=== PATIENT | female | born 1965 | race Caucasian/White ===

== ENCOUNTER 2017-04-06 11:56 | Inpatient (IN) | payer OTHER ==
[2017-04-07] MEDS ORDERED: ONDANSETRON 4 MG/2 ML VIAL IVP PRN (11:28)
[2017-04-07] MEDS ORDERED: ACETAMINOPHEN 325 MG TAB PO PRN ×2 (11:28→13:17)
[2017-04-07] MEDS ORDERED: HEPARIN 10,000 UNIT/10 ML MDV IVP PRN ×2 (11:29→13:17)
[2017-04-07] MEDS ORDERED: HEPARIN 10,000 UNIT/10 ML MDV IVP ONE ×2 (11:29)
[2017-04-07] MEDS ORDERED: HEPARIN/DEXTROSE 500 ML IV SCH ×2 (11:30→12:00)
[2017-04-07] MEDS ORDERED: HYDROCODONE/APAP 5/325 TAB PO PRN (11:31)
[2017-04-07] MEDS ORDERED: HYDROmorphONE/DILAUDID 1 MG/ML SYR IVP PRN (11:31)
--- NOTE | 2017-04-07 14:26 | GHP ---
[f rep st] HISTORY AND PHYSICAL DATE OF ADMISSION: 04/07/2017 CHIEF COMPLAINT: Right external iliac occlusion. HISTORY OF PRESENT ILLNESS: This is a 51-year-old female who presents with an acute right external iliac occlusion. 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 She has had some longstanding claudication with significant exertion. She did a [employer] race 4 days ago and since then has had much worsening pain. She now has pain in her right thigh and calf with minimal exertion including ambulation. She has been getting some rest pain over the last [address] Rae who ordered a CT angio of her lower extremities. This did show an acute right external iliac occlusion. Chief she currently is able to move her foot, does beckwith ve some sensation. She does not have any resting pain when I am seeing her. PAST MEDICAL/SURGICAL HISTORY: 1. Migraine. 2. Depression. 3. Dysfunctional uterine bleeding. 4. Eczema. 5. IUD. 6. ACL repair with stem cells. 7. Cholecystectomy. 8. Cataract surgery. 9. section. 10. Knee scope. MEDICATIONS: Please see medication reconciliation. ALLERGIES: Sulfa. FAMILY HISTORY: Her aunt had breast cancer. SOCIAL HISTORY: She drinks a little bit of alcohol every day. REVIEW OF SYSTEMS: 10-point review of systems is conducted and is negative except per HPI. PHYSICAL EXAM: VITAL SIGNS: Blood pressure 112/68, heart rate 60, respiration rate 18, saturating 96% on room air. Temperature is 36.5. GENERAL: The patient a pleasant female, resting comfortably in no acute distress. HEENT: Shows her to be normocephalic, atraumatic. CARDIOVASCULAR: Regular rate and rhythm. No mu rmurs, rubs, or gallops. PULMONARY: Lungs clear to auscultation bilaterally. ABDOMEN: Soft, nontender, nondistended. SKIN: No rash. : Shows no Irizarry. NEUROLOGIC: Shows her to be alert and oriented x3. She is moving all extremi ties. PSYCHIATRIC: Shows normal mood and affect. LABORATORY DATA: I reviewed her last labs. These were from January 2017. These show normal comprehe nsive metabolic panel, LDL was 119. CBC is normal. DATA: 1. I reviewed her old chart including H and P from Dr. Peterson. 2. I reviewed her CT angiogram aorta with runoff. This shows complete occlusion of the right exter nal iliac artery. IMPRESSION AND PLAN: A 51-year-old female with right external iliac artery occlusion, occurred abou t [address] her on a heparin drip overnight. Dr. Peterson will perform an iliofemoral bypass tomorrow. She will be n.p.o. after midnight. She has IV pain medicines ordered. No further cardia c workup to do given her good exercise tolerance and lack of any risk factors. This is a high-risk diagnosis. /[id number]/MODL
[2017-04-07 14:50] LABS: % IMMATURE GRANULYOCYTES 0.1 % (0.0-1.1); ABSOLUTE IMMATURE GRANULOCYTES 0.01 10^3/uL (0.00-0.10); ADD DIFF? NO; ADD MORPH? NO; ADD SCAN? NO; ATYPICAL LYMPHOCYTE FLAG 20 (0-99); FRAGMENT RBC FLAG 0 (0-99); HEMATOCRIT 44.6 % (38.0-47.0); HEMOGLOBIN 15.3 g/dL (12.6-16.3); LEFT SHIFT FLG 0 (0-99); LIPEMIA HEMOLYSIS FLAG 90 (0-99); MEAN CELL HEMOGLOBIN 31.2 pg (27.9-34.1); MEAN CELL HEMOGLOBIN CONCENTR. 34.3 g/dL (32.4-36.7); PLATELET CLUMPS FLAG 30 (0-99); PLATELET COUNT 226 10^3/uL (150-400); RED CELL DISTRIBUTION WIDTH 12.1 % (11.5-15.2)
[2017-04-07 15:02] LABS: INR 1.03 (0.83-1.16); PROTIME(PATIENT) 13.4 SEC (12.0-15.0)
[2017-04-07 15:03] LABS: APTT 23.7 SEC (23.0-38.0)
[2017-04-07] MEDS ORDERED: SUMAtriptan 50 MG TAB PO PRN (15:05)
[2017-04-07] MEDS ORDERED: ACET/CAFFEINE/BUTA FIORICET 1 EACH TAB PO PRN (15:05)
[2017-04-07 15:58] LABS: ALANINE AMINOTRANSFERASE 20 IU/L (9-52); ALBUMIN 4.5 g/dL (3.5-5.0); ALKALINE PHOSPHATASE 47 IU/L (38-126); ANION GAP 15 mEq/L (8-16); ASPARTATE AMINOTRANSFERASE 26 IU/L (14-46); BILIRUBIN,TOTAL 0.6 mg/dL (0.1-1.4); CALCIUM 9.5 mg/dL (8.5-10.4); CARBON DIOXIDE 22 mEq/l (22-31); CHLORIDE 105 mEq/L (97-110); CREATININE 0.7 mg/dL (0.6-1.0); GLOMERULAR FILTRATION RATE > 60; GLUCOSE 102 mg/dL (70-100); POTASSIUM 4.5 mEq/L (3.5-5.2); SODIUM 142 mEq/L (134-144); TOTAL PROTEIN 7.4 g/dL (6.3-8.2)
--- NOTE | 2017-04-07 18:03 | PDGENHP ---
History and Physical History and Physical: 51-YEAR-OLD FEMALE WITH SEVERE LIMITING CLAUDICATION IN HER RIGHT LEG. SHE HAS HAD SOME SYMPTOMS FOR SEVERAL YEARS BUT HAS BEEN ABLE TO WORK THROUGH THEM. THIS WE CAN SHE HAD SHARP PAIN CREASE IN HER SYMPTOMS WAS UNABLE TO EVEN WALK TO THE CAR AT THIS POINT. CTA SHOWS RIGHT EXTERNAL ILIAC ARTERY OCCLUSION. SHE DOES EXERCISE A LOT INCLUDING BIKE RIDING IN RACES AND HEAVY SKIING. SHE IS ADMITTED AT THIS TIME FOR AN ILEAL FEMORAL BYPASS ON HER RIGHT SIDE. PAST HISTORY INCLUDES A LAP CHOLY HYSTERECTOMY NO KNOWN ALLERGIES MEDICATIONS OCCASIONAL MIGRAINE MEDICATION REVIEW OF SYSTEMS REVEALS NO MAJOR MEDICAL PROBLEMS ON A FULL COMPLETE 10 POINT REVIEW OF SYSTEMS SPECIFICALLY NO CARDIOPULMONARY SYMPTOMS GENERAL EXAM REVEALS HER TO BE ALERT COOPERATIVE IN NO ACUTE DISTRESS HEENT REVEALS NO ADENOPATHY NO THYROMEGALY, AND NO ORAL LESIONS, PUPILS ARE NORMAL CHEST IS CLEAR AND SYMMETRIC CARDIAC EXAM WAS REGULAR RHYTHM WITHOUT MURMURS ABDOMEN IS SOFT WITHOUT MASSES OR TENDERNESS SHE DOES HAVE BOWEL SOUNDS EXTREMITIES REVEAL FULL RANGE OF MOTION SHE HAS ABSENT RIGHT PEDAL PULSES AND A POOR RIGHT FEMORAL PULSE. SHE HAS FULL LEFT LEG PULSES. RIGHT LEG SHOWS SOME SIGNS OF ISCHEMIA WITH DEPENDENT RUBOR NEURO EXAM IS PHYSIOLOGIC SKIN IS INTACT WITHOUT LESIONS PSYCH EXAM REVEALS HER TO BE ORIENTED, COMPETENT AND COOPERATIVE IMPRESSION IS RIGHT EXTERNAL ILIAC OCCLUSION SECONDARY TO COMPRESSION AT THE INGUINAL LIGAMENT FROM CHRONIC EXERCISES TRAUMA. RISKS AND OPTIONS BEEN FULLY DISCUSSED WITH THE PATIENT AND ALSO WITH DR. GARCIA CHEY OF INTERVENTIONAL RADIOLOGY. WE DID NOT FEEL THAT THROMBOLYSIS WOULD BE A PERMANENT SOLUTION FOR HER PROBLEM AND THAT BYPASS WOULD BE A BETTER OPTION. SHE NOT REALLY HAVE A STENT IN THIS POSITION UNDER THE INGUINAL LIGAMENT AND HER FIBROSIS WILL MOST LIKELY CAUSE A WERE RE OCCLUSION AND THE SHE IS ON LONG-TERM ANTICOAGULANTS PLAN IS ADMIT FOR RIGHT ILIOFEMORAL BYPASS AND HEPARINIZATION. AGAIN THE RISKS AND OPTIONS BEEN FULLY DISCUSSED AND SHE WISHES TO PROCEED
[2017-04-08] MEDS ORDERED: BUPIVACAINE 0.5% 30 ML SDV ONE (06:47)
[2017-04-08] MEDS ORDERED: PROTAMINE SULFATE 50 MG/5 ML VIAL IVP ONE (06:47)
[2017-04-08] MEDS ORDERED: IOTHALAMATE MEG (CONRAY) 50 ML VIAL IV ONE (06:48)
[2017-04-08] MEDS ORDERED: PAPAVERINE HCL 60 MG/2 ML SDV ONE (06:48)
[2017-04-08] MEDS ORDERED: ceFAZolin 2 GM/DEXTROSE 100 ML IV ONE (07:00)
[2017-04-08] MEDS ORDERED: DEXAMETHASONE 4 MG/ML VIAL ONE (08:20)
[2017-04-08] MEDS ORDERED: ROCURONIUM 50 MG/5 ML VIAL ONE ×2 (08:20→09:48)
[2017-04-08] MEDS ORDERED: SUGAMMADEX SODIUM 200 MG/2 ML VIAL IVP ONE (08:20)
[2017-04-08] MEDS ORDERED: fentaNYL 100 MCG/2 ML INJ ONE ×2 (08:20→11:54)
[2017-04-08] MEDS ORDERED: LIDOCAINE 2% 100 MG/5 ML SYR ONE (08:20)
[2017-04-08] MEDS ORDERED: ONDANSETRON 4 MG/2 ML VIAL ONE ×2 (08:20→12:32)
[2017-04-08] MEDS ORDERED: HYDROmorphONE/DILAUDID 2 MG/ML INJ ONE ×2 (08:21→11:54)
[2017-04-08] MEDS ORDERED: PROPOFOL 200 MG/20 ML VIAL ONE (08:21)
[2017-04-08] MEDS ORDERED: MIDAZOLAM 2 MG/2 ML VIAL ONE (08:55)
[2017-04-08] MEDS ORDERED: PHENYLEPHRINE HCL 100 MCG/ML SYR ONE (09:24)
[2017-04-08] MEDS ORDERED: HEPARIN 10,000 UNIT/10 ML MDV ONE (09:54)
--- NOTE | 2017-04-08 12:35 | POSTOPPROG ---
Post Op Note Date of Operation: 04/08/17 Surgeon: Mitesh Peterson Brush Sander: Alverto Barrett Anesthesiologist: Dr Saleem Anesthesia: GET(General Endotracheal) Pre-op Diagnosis: right external iliac thrombosis/endofibrosis Post-op Diagnosis: same Indication: decreased flow to right leg Procedure: thrombectomy, right iliofemoral bypass surgery Findings: occluded external iliac artery Inf/Abcess present in the surg proc area at time of surgery?: No Depth: Organ Space EBL: 100-500
--- NOTE | 2017-04-08 12:40 | HOSPPROG ---
Hospitalist Progress Note Assessment/Plan: # external iliac occlusion s/p bipass - post-op care per Dr Peterson - move to SDU to check pulses frequently # hx migraines - home meds Care discussed with Dr Peterson. Hospital medicine will sign off. Please reconsult at any time. Subjective: s/p femoral bipass; no CP or SOB Objective: Vital Signs Temp Pulse Resp BP Pulse Ox 36.2 C 67 16 114/65 98 04/08/17 12:09 04/08/17 12:09 04/08/17 12:09 04/08/17 12:09 04/08/17 12:09 Laboratory Results 04/07/17 14:35 04/07/17 14:35 04/07/17 04/08/17 04/09/17 05:59 05:59 05:59 Intake Total 55.8 1900 Output Total 200 Balance 55.8 1700 PT 13.4 SEC (12.0-15.0) 04/07/17 14:35 INR 1.03 (0.83-1.16) 04/07/17 14:35 - Physical Exam Constitutional: no apparent distress Cardiovascular: regular rate and rhythym, no murmur, rub, or gallop Respiratory: no respiratory distress, no rales or rhonchi, clear to auscultation Gastrointestinal: normoactive bowel sounds, soft, non-tender abdomen, no palpable masses ICD10 Worksheet Patient Problems: Problems Problem Status Onset Arterial occlusion Acute
[2017-04-08] MEDS: HYDROmorphONE/DILAUDID 1 MG/ML SYR IVP PRN ×2 (15:31→17:55)
[2017-04-08] MEDS: ONDANSETRON 4 MG/2 ML VIAL IVP PRN ×2 (15:31→21:27)
[2017-04-08] MEDS: OMEGA-3 FATTY ACIDS 1,000 MG CAP PO SCH (15:31)
[2017-04-08] MEDS ORDERED: KETOROLAC 30 MG/1 ML SDV IVP ONE (18:15)
--- NOTE | 2017-04-08 18:49 | SOAPPROG ---
SOAP Progress Note Assessment/Plan: Assessment: POSTOP UPSET WITH A MIGRAINE HEADACHE / WOUND OKAY / FOOT WARM WITH STRONG DOPPLER PULSES / VITAL SIGNS STABLE Plan: AMBULATE IN THE A.M. 04/08/17 18:48 Objective: Vital Signs Temp Pulse Resp BP Pulse Ox 36.2 C 56 L 17 137/70 H 100 04/08/17 12:09 04/08/17 18:00 04/08/17 18:00 04/08/17 18:00 04/08/17 18:00 Laboratory Results 04/07/17 14:35 04/07/17 14:35 04/07/17 04/08/17 04/09/17 05:59 05:59 05:59 Intake Total 55.8 1950 Output Total 450 Balance 55.8 1500 PT 13.4 SEC (12.0-15.0) 04/07/17 14:35 INR 1.03 (0.83-1.16) 04/07/17 14:35 ICD10 Worksheet Patient Problems: Problems Problem Status Onset Arterial occlusion Acute
[2017-04-08] MEDS: HYDROCODONE/APAP 5/325 TAB PO PRN (20:32)
[2017-04-09] MEDS: KETOROLAC 15 MG/1 ML SDV IVP SCH ×5 (00:08→23:41)
[2017-04-09] MEDS: HYDROCODONE/APAP 5/325 TAB PO PRN ×3 (01:25→10:51)
[2017-04-09] MEDS: OMEGA-3 FATTY ACIDS 1,000 MG CAP PO SCH (07:44)
[2017-04-09] MEDS ORDERED: IOPAMIDOL (ISOVUE 370) 100 ML BTL IV ONE (11:28)
[2017-04-09] MEDS ORDERED: HEPARIN/DEXTROSE 500 ML IV SCH ×2 (14:41→23:41)
[2017-04-09] MEDS ORDERED: HEPARIN 10,000 UNIT/10 ML MDV IVP PRN (14:41)
[2017-04-09] MEDS ORDERED: HEPARIN 10,000 UNIT/10 ML MDV IVP ONE (14:45)
[2017-04-09] MEDS ORDERED: ceFAZolin 2 GM/DEXTROSE 100 ML IV ONE (15:00)
[2017-04-09] MEDS ORDERED: LR 1,000 ML IV SCH (15:00)
[2017-04-09 15:18] LABS: % IMMATURE GRANULYOCYTES 0.1 % (0.0-1.1); ABSOLUTE IMMATURE GRANULOCYTES 0.01 10^3/uL (0.00-0.10); ADD DIFF? NO; ADD MORPH? NO; ADD SCAN? NO; ATYPICAL LYMPHOCYTE FLAG 10 (0-99); FRAGMENT RBC FLAG 0 (0-99); HEMATOCRIT 40.1 % (38.0-47.0); HEMOGLOBIN 13.8 g/dL (12.6-16.3); LEFT SHIFT FLG 0 (0-99); LIPEMIA HEMOLYSIS FLAG 90 (0-99); MEAN CELL HEMOGLOBIN 31.2 pg (27.9-34.1); MEAN CELL HEMOGLOBIN CONCENTR. 34.4 g/dL (32.4-36.7); MEAN CELL VOLUME 90.7 fL (81.5-99.8); MEAN PLATELET VOLUME 10.4 fL (8.7-11.7); PLATELET CLUMPS FLAG 0 (0-99); PLATELET COUNT 173 10^3/uL (150-400); RED BLOOD CELL COUNT 4.42 10^6/uL (4.18-5.33); RED CELL DISTRIBUTION WIDTH 12.1 % (11.5-15.2)
[2017-04-09 15:28] LABS: APTT 23.8 SEC (23.0-38.0); INR 1.11 (0.83-1.16); PROTIME(PATIENT) 14.2 SEC (12.0-15.0)
[2017-04-09] MEDS ORDERED: THROMBIN (BOVINE) 20,000 UNIT SPRAY TP ONE (15:49)
[2017-04-09] MEDS ORDERED: THROMBIN (BOVINE) 5,000 UNIT VIAL TP ONE (15:50)
[2017-04-09] MEDS ORDERED: BUPIVACAINE 0.5% 30 ML SDV ONE (15:50)
--- NOTE | 2017-04-09 16:05 | SOAPPROG ---
JADA Progress Note Assessment/Plan: Assessment: POSTOP UPSET WITH A MIGRAINE HEADACHE / WOUND OKAY / FOOT WARM WITH STRONG DOPPLER PULSES / VITAL SIGNS STABLE Plan: AMBULATE IN THE A.M. 04/08/17 18:48 04/09/17 16:02 SEEN EARLIER THIS MORNING WITH COMPLAINTS OF NUMBNESS IN HER FOOT / PEDAL PULSES ARE MISSING / QUESTION ARISES OF DISTAL EMBOLUS / PLAN IS STAT CT AORTOGRAM WITH RUNOFF TO RULE OUT GRAFT OCCLUSION OR EMBOLI / SHE WILL PROBABLY NEED SURGICAL INTERVENTION / RISKS AND OPTIONS BEEN FULLY DISCUSSED SHE WISHES TO PROCEED / HER RIGHT FOOT IS VIABLE WITH INTACT SENSATION AND MOTOR FUNCTION BUT IS COOL WITH NO PALPABLE PEDAL PULSES. I CANNOT FEEL HER POPLITEAL PULSES EITHER 04/09/17 16:04 CTA CONFIRMS OCCLUSION OF HER BYPASS GRAFT BUT STILL OPEN RUNOFF / WILL NEED REEXPLORATION FOR POSSIBLE INTIMAL FLAP AND/OR REVISION OF HER GRAFT / RISKS AND OPTIONS BEEN FULLY DISCUSSED AND SHE WISHES TO PROCEED Objective: Vital Signs Temp Pulse Resp BP Pulse Ox 36.6 C 67 14 108/63 91 L 04/09/17 11:17 04/09/17 11:17 04/09/17 11:17 04/09/17 11:17 04/09/17 11:17 Laboratory Results 04/09/17 14:55 04/07/17 14:35 04/08/17 04/09/17 04/10/17 05:59 05:59 05:59 Intake Total 55.8 3079 Output Total 1850 Balance 55.8 1229 PT 14.2 SEC (12.0-15.0) 04/09/17 14:55 INR 1.11 (0.83-1.16) 04/09/17 14:55 ICD10 Worksheet Patient Problems: Problems Problem Status Onset Arterial occlusion Acute
[2017-04-09] MEDS ORDERED: MIDAZOLAM 2 MG/2 ML VIAL ONE (16:22)
[2017-04-09] MEDS ORDERED: PROPOFOL 200 MG/20 ML VIAL ONE (16:30)
[2017-04-09] MEDS ORDERED: fentaNYL 100 MCG/2 ML INJ ONE ×4 (16:30→20:15)
[2017-04-09] MEDS ORDERED: PROPOFOL/EMULSION 500 MG/50 ML BOTTLE IV ONE (16:31)
[2017-04-09] MEDS ORDERED: CITRATE DEXTROSE SOLN 500 ML BAG ONE (17:22)
[2017-04-09] MEDS ORDERED: ALTEPLASE 10 MG in NS 100 ML IVP ONE (17:30)
[2017-04-09] MEDS ORDERED: HYDROmorphONE/DILAUDID 2 MG/ML INJ ONE (17:31)
[2017-04-09] MEDS ORDERED: IOPAMIDOL (ISOVUE-300) 150 ML BTL ONE (17:44)
[2017-04-09] MEDS ORDERED: PROTAMINE SULFATE 50 MG/5 ML VIAL IVP ONE (18:56)
--- NOTE | 2017-04-09 19:37 | POSTOPPROG ---
Post Op Note Date of Operation: 04/09/17 Surgeon: Mitesh Peterson Mobile [employer] Specialist: radha Anesthesiologist: ara Anesthesia: GET(General Endotracheal) Pre-op Diagnosis: occluded right ileo-femoral bypass and distal emboli Post-op Diagnosis: same Indication: ischemia Procedure: ileo-femoral thrombectomy with patch angioplasty, operative angiography, tp Findings: sfa origin embolus and distal small vessel emboli Inf/Abcess present in the surg proc area at time of surgery?: No Depth: Organ Space EBL: 50-100 Complications: none Specimen(s): emboli
[2017-04-09] MEDS ORDERED: OXYCODONE/APAP 5/325 TAB PO PRN (19:41)
[2017-04-09] MEDS ORDERED: NALOXONE HCL 0.4 MG/ML INJ IVP PRN (19:42)
[2017-04-09] MEDS ORDERED: HYDROmorphONE/DILAUDID 6 MG/30 ML PCA IV PRN (19:42)
[2017-04-09] MEDS ORDERED: D5W 1/2 NS W/ 20 KCl/L 1,000 ML IV SCH (19:45)
[2017-04-09] MEDS ORDERED: HYDROmorphONE/DILAUDID 1 MG/ML SYR ONE (20:41)
[2017-04-09 20:45] LABS: HEMATOCRIT 36.6 % (38.0-47.0); HEMOGLOBIN 12.4 g/dL (12.6-16.3)
[2017-04-09] MEDS: ONDANSETRON 4 MG/2 ML VIAL IVP PRN (21:15)
[2017-04-10] MEDS: HYDROmorphONE/DILAUDID 1 MG/ML SYR IVP PRN ×4 (00:05→15:34)
[2017-04-10] MEDS: KETOROLAC 15 MG/1 ML SDV IVP SCH (05:21)
--- NOTE | 2017-04-10 06:53 | SOAPPROG ---
SOAP Progress Note Assessment/Plan: Assessment: Plan: Doing well, had some tingling in her thigh overnight which appears to have resolved. - Hb stable, HDS - MIRANDA serosang and slowing. - Given robust pulse exam last evening at 2000, 2300 and this AM at 0230 and 0630 I did not restart hep gtt, will start proph LMWH this AM - defer to Dr Peterson for poss activityt - started clear liquids 04/10/17 06:52 Objective: Vital Signs Temp Pulse Resp BP Pulse Ox 36.7 C 51 L 16 86/48 L 100 04/10/17 03:00 04/10/17 06:00 04/10/17 06:00 04/10/17 06:00 04/10/17 06:00 Laboratory Results 04/09/17 20:27 04/07/17 14:35 04/09/17 04/10/17 04/11/17 05:59 05:59 05:59 Intake Total 3079 4252 Output Total 1850 2720 Balance 1229 1532 PT 14.2 SEC (12.0-15.0) 04/09/17 14:55 INR 1.11 (0.83-1.16) 04/09/17 14:55 ICD10 Worksheet Patient Problems: Problems Problem Status Onset Arterial occlusion Acute
[2017-04-10] MEDS: OMEGA-3 FATTY ACIDS 1,000 MG CAP PO SCH (07:53)
[2017-04-10] MEDS: HYDROCODONE/APAP 5/325 TAB PO PRN ×3 (07:53→20:03)
[2017-04-10] MEDS: ENOXAPARIN 40 MG/0.4 ML SYR SC SCH (07:53)
[2017-04-10] MEDS: ONDANSETRON 4 MG/2 ML VIAL IVP PRN ×2 (12:16→15:34)
[2017-04-10] MEDS ORDERED: LACTULOSE 20 GM/30 ML UDCUP PO PRN (12:35)
[2017-04-10] MEDS ORDERED: MAGNESIUM HYDROXIDE 30 ML UDCUP PO PRN (12:35)
[2017-04-10] MEDS ORDERED: BISACODYL 10 MG SUPP PR PRN (12:35)
[2017-04-10] MEDS: KETOROLAC 15 MG/1 ML SDV IVP PRN ×2 (12:44→20:09)
--- NOTE | 2017-04-10 13:55 | SOAPPROG ---
JADA Progress Note Assessment/Plan: Assessment: POSTOP UPSET WITH A MIGRAINE HEADACHE / WOUND OKAY / FOOT WARM WITH STRONG DOPPLER PULSES / VITAL SIGNS STABLE Plan: AMBULATE IN THE A.M. 04/08/17 18:48 04/09/17 16:02 SEEN EARLIER THIS MORNING WITH COMPLAINTS OF NUMBNESS IN HER FOOT / PEDAL PULSES ARE MISSING / QUESTION ARISES OF DISTAL EMBOLUS / PLAN IS STAT CT AORTOGRAM WITH RUNOFF TO RULE OUT GRAFT OCCLUSION OR EMBOLI / SHE WILL PROBABLY NEED SURGICAL INTERVENTION / RISKS AND OPTIONS BEEN FULLY DISCUSSED SHE WISHES TO PROCEED / HER RIGHT FOOT IS VIABLE WITH INTACT SENSATION AND MOTOR FUNCTION BUT IS COOL WITH NO PALPABLE PEDAL PULSES. I CANNOT FEEL HER POPLITEAL PULSES EITHER 04/09/17 16:04 CTA CONFIRMS OCCLUSION OF HER BYPASS GRAFT BUT STILL OPEN RUNOFF / WILL NEED REEXPLORATION FOR POSSIBLE INTIMAL FLAP AND/OR REVISION OF HER GRAFT / RISKS AND OPTIONS BEEN FULLY DISCUSSED AND SHE WISHES TO PROCEED 04/10/17 13:53 DOING OKAY THIS MORNING BUT COMPLAINING OF HEADACHE AND BACK PAIN / ABDOMEN SOFT / WOUNDS OKAY/ PULSES BOUNDING NEEDS TO BE MOBILIZED / SOME NAUSEA SO POOR P.O. INTAKE / EXCEPT FOR EMOTIONAL STATUS DOING WELL Objective: Vital Signs Temp Pulse Resp BP Pulse Ox 36.6 C 76 18 104/62 100 04/10/17 12:00 04/10/17 12:00 04/10/17 12:00 04/10/17 12:00 04/10/17 12:00 Laboratory Results 04/09/17 20:27 04/07/17 14:35 04/09/17 04/10/17 04/11/17 05:59 05:59 05:59 Intake Total 3079 4252 Output Total 9180 2990 Balance 1229 1532 PT 14.2 SEC (12.0-15.0) 04/09/17 14:55 INR 1.11 (0.83-1.16) 04/09/17 14:55 ICD10 Worksheet Patient Problems: Problems Problem Status Onset Arterial occlusion Acute
[2017-04-10] MEDS: POLYETHYLENE GLYCOL 3350 17 GM PKT PO PRN (14:34)
--- NOTE | 2017-04-10 16:55 | SOAPPROG ---
JADA Progress Note Assessment/Plan: Assessment: POSTOP UPSET WITH A MIGRAINE HEADACHE / WOUND OKAY / FOOT WARM WITH STRONG DOPPLER PULSES / VITAL SIGNS STABLE Plan: AMBULATE IN THE A.M. 04/08/17 18:48 04/09/17 16:02 SEEN EARLIER THIS MORNING WITH COMPLAINTS OF NUMBNESS IN HER FOOT / PEDAL PULSES ARE MISSING / QUESTION ARISES OF DISTAL EMBOLUS / PLAN IS STAT CT AORTOGRAM WITH RUNOFF TO RULE OUT GRAFT OCCLUSION OR EMBOLI / SHE WILL PROBABLY NEED SURGICAL INTERVENTION / RISKS AND OPTIONS BEEN FULLY DISCUSSED SHE WISHES TO PROCEED / HER RIGHT FOOT IS VIABLE WITH INTACT SENSATION AND MOTOR FUNCTION BUT IS COOL WITH NO PALPABLE PEDAL PULSES. I CANNOT FEEL HER POPLITEAL PULSES EITHER 04/09/17 16:04 CTA CONFIRMS OCCLUSION OF HER BYPASS GRAFT BUT STILL OPEN RUNOFF / WILL NEED REEXPLORATION FOR POSSIBLE INTIMAL FLAP AND/OR REVISION OF HER GRAFT / RISKS AND OPTIONS BEEN FULLY DISCUSSED AND SHE WISHES TO PROCEED 04/10/17 13:53 DOING OKAY THIS MORNING BUT COMPLAINING OF HEADACHE AND BACK PAIN / ABDOMEN SOFT / WOUNDS OKAY/ PULSES BOUNDING NEEDS TO BE MOBILIZED / SOME NAUSEA SO POOR P.O. INTAKE / EXCEPT FOR EMOTIONAL STATUS DOING WELL 04/10/17 16:54 NOT ABLE TO MOBILIZE WELL SECONDARY TO PAIN / AFEBRILE / WOUND OKAY / PULSES GRADE/ DRAIN OUT AND VALERIO CATHETER OUT Objective: Vital Signs Temp Pulse Resp BP Pulse Ox 36.6 C 68 16 89/53 L 98 04/10/17 12:00 04/10/17 16:00 04/10/17 16:00 04/10/17 16:00 04/10/17 16:00 Laboratory Results 04/09/17 20:27 04/07/17 14:35 04/09/17 04/10/17 04/11/17 05:59 05:59 05:59 Intake Total 3079 4252 Output Total 1850 3960 580 Balance 1229 1532 -580 PT 14.2 SEC (12.0-15.0) 04/09/17 14:55 INR 1.11 (0.83-1.16) 04/09/17 14:55 ICD10 Worksheet Patient Problems: Problems Problem Status Onset Arterial occlusion Acute
[2017-04-10] MEDS: SENNOSIDES/DOCUSATE SODIUM TAB PO SCH (20:04)
[2017-04-11] MEDS: HYDROCODONE/APAP 5/325 TAB PO PRN ×6 (00:05→20:56)
[2017-04-11 07:05] LABS: HEMATOCRIT 31.8 % (38.0-47.0); HEMOGLOBIN 10.6 g/dL (12.6-16.3)
[2017-04-11] MEDS: ASPIRIN EC 81 MG TAB PO SCH (07:55)
[2017-04-11] MEDS: POLYETHYLENE GLYCOL 3350 17 GM PKT PO PRN (07:55)
[2017-04-11] MEDS: ENOXAPARIN 40 MG/0.4 ML SYR SC SCH (07:55)
[2017-04-11] MEDS: SENNOSIDES/DOCUSATE SODIUM TAB PO SCH ×2 (07:55→21:03)
[2017-04-11] MEDS: KETOROLAC 15 MG/1 ML SDV IVP PRN ×2 (07:56→16:29)
[2017-04-11] MEDS: OMEGA-3 FATTY ACIDS 1,000 MG CAP PO SCH (07:56)
[2017-04-11 08:25] LABS: ANION GAP 7 mEq/L (8-16); CALCIUM 8.5 mg/dL (8.5-10.4); CARBON DIOXIDE 27 mEq/l (22-31); CHLORIDE 104 mEq/L (97-110); CREATININE 0.6 mg/dL (0.6-1.0); GLOMERULAR FILTRATION RATE > 60; GLUCOSE 85 mg/dL (70-100); POTASSIUM 3.6 mEq/L (3.5-5.2); SODIUM 138 mEq/L (134-144)
--- NOTE | 2017-04-11 11:33 | SOAPPROG ---
JADA Progress Note Assessment/Plan: Assessment: POSTOP UPSET WITH A MIGRAINE HEADACHE / WOUND OKAY / FOOT WARM WITH STRONG DOPPLER PULSES / VITAL SIGNS STABLE Plan: AMBULATE IN THE A.M. 04/08/17 18:48 04/09/17 16:02 SEEN EARLIER THIS MORNING WITH COMPLAINTS OF NUMBNESS IN HER FOOT / PEDAL PULSES ARE MISSING / QUESTION ARISES OF DISTAL EMBOLUS / PLAN IS STAT CT AORTOGRAM WITH RUNOFF TO RULE OUT GRAFT OCCLUSION OR EMBOLI / SHE WILL PROBABLY NEED SURGICAL INTERVENTION / RISKS AND OPTIONS BEEN FULLY DISCUSSED SHE WISHES TO PROCEED / HER RIGHT FOOT IS VIABLE WITH INTACT SENSATION AND MOTOR FUNCTION BUT IS COOL WITH NO PALPABLE PEDAL PULSES. I CANNOT FEEL HER POPLITEAL PULSES EITHER 04/09/17 16:04 CTA CONFIRMS OCCLUSION OF HER BYPASS GRAFT BUT STILL OPEN RUNOFF / WILL NEED REEXPLORATION FOR POSSIBLE INTIMAL FLAP AND/OR REVISION OF HER GRAFT / RISKS AND OPTIONS BEEN FULLY DISCUSSED AND SHE WISHES TO PROCEED 04/10/17 13:53 DOING OKAY THIS MORNING BUT COMPLAINING OF HEADACHE AND BACK PAIN / ABDOMEN SOFT / WOUNDS OKAY/ PULSES BOUNDING NEEDS TO BE MOBILIZED / SOME NAUSEA SO POOR P.O. INTAKE / EXCEPT FOR EMOTIONAL STATUS DOING WELL 04/10/17 16:54 NOT ABLE TO MOBILIZE WELL SECONDARY TO PAIN / AFEBRILE / WOUND OKAY / PULSES GRADE/ DRAIN OUT AND VALERIO CATHETER OUT 04/11/17 11:32 MUCH IMPROVED/ AFEBRILE/ WOUNDS OK/ PULSES GOOD/ TO MED SURG Objective: Vital Signs Temp Pulse Resp BP Pulse Ox 36.8 C 76 14 99/56 L 98 04/11/17 10:00 04/11/17 10:00 04/11/17 10:00 04/11/17 10:00 04/11/17 10:00 Laboratory Results 04/11/17 07:00 04/11/17 07:45 04/10/17 04/11/17 04/12/17 05:59 05:59 05:59 Intake Total 4252 600 Output Total 5800 730 Balance 1532 -130 PT 14.2 SEC (12.0-15.0) 04/09/17 14:55 INR 1.11 (0.83-1.16) 04/09/17 14:55 ICD10 Worksheet Patient Problems: Problems Problem Status Onset Arterial occlusion Acute
[2017-04-12] MEDS: HYDROCODONE/APAP 5/325 TAB PO PRN ×5 (00:35→20:28)
[2017-04-12] MEDS: KETOROLAC 15 MG/1 ML SDV IVP PRN (00:35)
[2017-04-12] MEDS ORDERED: CYCLOBENZAPRINE 10 MG TAB PO PRN (01:00)
[2017-04-12] MEDS: SENNOSIDES/DOCUSATE SODIUM TAB PO SCH ×3 (04:18→20:28)
[2017-04-12] MEDS: ENOXAPARIN 40 MG/0.4 ML SYR SC SCH (08:20)
[2017-04-12] MEDS: OMEGA-3 FATTY ACIDS 1,000 MG CAP PO SCH (08:20)
[2017-04-12] MEDS: ASPIRIN EC 81 MG TAB PO SCH (08:20)
[2017-04-12] MEDS: IBUPROFEN 600 MG TAB PO SCH ×2 (13:03→17:55)
--- NOTE | 2017-04-12 18:09 | SOAPPROG ---
SOAP Progress Note Assessment/Plan: Assessment: POSTOP UPSET WITH A MIGRAINE HEADACHE / WOUND OKAY / FOOT WARM WITH STRONG DOPPLER PULSES / VITAL SIGNS STABLE Plan: AMBULATE IN THE A.M. 04/08/17 18:48 04/09/17 16:02 SEEN EARLIER THIS MORNING WITH COMPLAINTS OF NUMBNESS IN HER FOOT / PEDAL PULSES ARE MISSING / QUESTION ARISES OF DISTAL EMBOLUS / PLAN IS STAT CT AORTOGRAM WITH RUNOFF TO RULE OUT GRAFT OCCLUSION OR EMBOLI / SHE WILL PROBABLY NEED SURGICAL INTERVENTION / RISKS AND OPTIONS BEEN FULLY DISCUSSED SHE WISHES TO PROCEED / HER RIGHT FOOT IS VIABLE WITH INTACT SENSATION AND MOTOR FUNCTION BUT IS COOL WITH NO PALPABLE PEDAL PULSES. I CANNOT FEEL HER POPLITEAL PULSES EITHER 04/09/17 16:04 CTA CONFIRMS OCCLUSION OF HER BYPASS GRAFT BUT STILL OPEN RUNOFF / WILL NEED REEXPLORATION FOR POSSIBLE INTIMAL FLAP AND/OR REVISION OF HER GRAFT / RISKS AND OPTIONS BEEN FULLY DISCUSSED AND SHE WISHES TO PROCEED 04/10/17 13:53 DOING OKAY THIS MORNING BUT COMPLAINING OF HEADACHE AND BACK PAIN / ABDOMEN SOFT / WOUNDS OKAY/ PULSES BOUNDING NEEDS TO BE MOBILIZED / SOME NAUSEA SO POOR P.O. INTAKE / EXCEPT FOR EMOTIONAL STATUS DOING WELL 04/10/17 16:54 NOT ABLE TO MOBILIZE WELL SECONDARY TO PAIN / AFEBRILE / WOUND OKAY / PULSES GRADE/ DRAIN OUT AND VALERIO CATHETER OUT 04/11/17 11:32 MUCH IMPROVED/ AFEBRILE/ WOUNDS OK/ PULSES GOOD/ TO MED SURG 04/12/17 18:07 CONTINUES TO IMPROVE / AMBULATING OKAY / FULL PULSES / HOPEFULLY HOME IN THE A.M. Objective: Vital Signs Temp Pulse Resp BP Pulse Ox 36.8 C 72 14 119/89 H 92 04/12/17 16:00 04/12/17 16:00 04/12/17 16:00 04/12/17 16:00 04/12/17 16:00 Laboratory Results 04/11/17 07:00 04/11/17 07:45 04/11/17 04/12/17 04/13/17 05:59 05:59 05:59 Intake Total 600 2450 Output Total 730 Balance -130 2450 PT 14.2 SEC (12.0-15.0) 04/09/17 14:55 INR 1.11 (0.83-1.16) 06/09/17 14:55 ICD10 Worksheet Patient Problems: Problems Problem Status Onset Arterial occlusion Acute
[2017-04-12 20:31] VITALS: RESP 16
[2017-04-13] MEDS: IBUPROFEN 600 MG TAB PO SCH ×3 (00:54→14:03)
[2017-04-13] MEDS: HYDROCODONE/APAP 5/325 TAB PO PRN ×2 (00:56→08:42)
[2017-04-13 04:38] LABS: % IMMATURE GRANULYOCYTES 0.3 % (0.0-1.1); ABSOLUTE IMMATURE GRANULOCYTES 0.02 10^3/uL (0.00-0.10); ADD DIFF? NO; ADD MORPH? NO; ADD SCAN? NO; ATYPICAL LYMPHOCYTE FLAG 40 (0-99); FRAGMENT RBC FLAG 0 (0-99); HEMATOCRIT 32.2 % (38.0-47.0); HEMOGLOBIN 10.9 g/dL (12.6-16.3); LEFT SHIFT FLG 0 (0-99); LIPEMIA HEMOLYSIS FLAG 90 (0-99); MEAN CELL HEMOGLOBIN 30.7 pg (27.9-34.1); MEAN CELL HEMOGLOBIN CONCENTR. 33.9 g/dL (32.4-36.7); MEAN CELL VOLUME 90.7 fL (81.5-99.8); MEAN PLATELET VOLUME 9.9 fL (8.7-11.7); PLATELET CLUMPS FLAG 0 (0-99); PLATELET COUNT 182 10^3/uL (150-400); RED BLOOD CELL COUNT 3.55 10^6/uL (4.18-5.33)
[2017-04-13 07:17] VITALS: BP 119/75; PULSE 70; TEMP 97.8; O2SAT 94
[2017-04-13] MEDS: SENNOSIDES/DOCUSATE SODIUM TAB PO SCH (08:41)
[2017-04-13] MEDS: OMEGA-3 FATTY ACIDS 1,000 MG CAP PO SCH (08:42)
[2017-04-13] MEDS: ASPIRIN EC 81 MG TAB PO SCH (08:42)
[2017-04-13] MEDS: ENOXAPARIN 40 MG/0.4 ML SYR SC SCH (08:43)
--- NOTE | 2017-04-13 12:12 | SOAPPROG ---
SOMARV Progress Note Assessment/Plan: Assessment/Plan: 51 Y F s/p ileo-femoral bypass, s/p return to OR for ileo- femoral thrombectomy with patch angioplasty, operative angiography, tp. POD# 5, [address] Peterson. Doing well overall. Possibly home later today after post op baseline arterial studies. S: c/o some cramps in thigh when walking. c/o some numbness and nerve pain in medial distal thigh. Eating. +BM. Walking independently. O: gen: alert, nad heent: ncat, mmm chest: no wob abd: soft,in cdi ext: palpable pedal pulses B, inc cdi, feet warm, healthy pink perfused color 04/13/17 12:09 Objective: Vital Signs Temp Pulse Resp BP Pulse Ox 36.6 C 70 16 119/75 94 04/13/17 07:15 04/13/17 07:15 04/13/17 07:15 04/13/17 07:15 04/13/17 07:15 Laboratory Results 04/13/17 03:50 04/11/17 07:45 04/12/17 04/13/17 04/14/17 05:59 05:59 05:59 Intake Total 2450 2700 Balance 2450 2700 PT 14.2 SEC (12.0-15.0) 04/09/17 14:55 INR 1.11 (0.83-1.16) 04/09/17 14:55 ICD10 Worksheet Patient Problems: Problems Problem Status Onset Arterial occlusion Acute
== END 2017-04-13 14:20 | disposition home or self-care (01) | DRG 271 ==
LOC: UNDOADMIN 23:42 → F2N 23:42 → F3E 04-07 13:06 → F2N 04-08 12:58 → F2W 04-09 09:05 → F2N 04-09 20:00 → F2W 04-11 17:55
PROVIDERS: ADMIT Surgery; ATTEND Surgery
PROC: 04100JD Bypass Abdominal Aorta to Right External Iliac Artery with Synthetic Substitute, Open Approach (ICD-10-PCS; principal; 2017-04-08 09:00)
PROC: 3E05317 Introduction of Other Thrombolytic into Peripheral Artery, Percutaneous Approach (ICD-10-PCS; 2017-04-09 15:00)
PROC: 04CH0ZZ Extirpation of Matter from Right External Iliac Artery, Open Approach (ICD-10-PCS; 2017-04-09 15:00)
DX: I74.5 Embolism and thrombosis of iliac artery (principal); T81.718A Complication of other artery following a procedure, not elsewhere classified, initial encounter; G43.909 Migraine, unspecified, not intractable, without status migrainosus; F32.9 Major depressive disorder, single episode, unspecified
CPT/HCPCS: 85520-90; 97116-GP; 97161-GP; C1757; C1768; J0690; J1100; J1170; J1644; J1650; J1885; J2001; J2250; J2370; J2405; J2440; J2704; J2720; J2997; J3010; J7060; Q9961; Q9967

== ENCOUNTER → 2017-04-06 | Outpatient (CLI) | payer OTHER ==
[~2017-04-06] MED LIST: IOPAMIDOL (ISOVUE 370) 100 ML BTL IV ONE
== END ==
LOC: FIMAGING 15:14
PROVIDERS: ATTEND Radiology Diagnostic Radiology
DX: I74.5 Embolism and thrombosis of iliac artery (principal)
CPT/HCPCS: Q9967

== ENCOUNTER 2017-06-24 12:29 | Inpatient (IN) | payer OTHER ==
[2017-06-24] MEDS ORDERED: IOPAMIDOL (ISOVUE 370) 100 ML BTL IV ONE (13:39)
--- NOTE | 2017-06-24 15:38 | PDGENHP ---
History & Physical Chief Complaint: RIGHT LEG PAIN History of Present Illness: 51-YEAR-OLD FEMALE STATUS POST ILIOFEMORAL BYPASS WITH SUDDEN ONSET OF SOME RIGHT LEG PAIN FOLLOWING A BICYCLE RIDE TODAY. SHE HAD AN OCCLUDED RIGHT ILIAC ARTERY IN APRIL Pertinent Past, Social, Family History: PAST MEDICAL HISTORY: RIGHT ILIAC ARTERY OCCLUSION WITH THE BYPASS AND THROMBECTOMY. REVIEW OF SYSTEMS IS NEGATIVE ON A FULL 10 POINT REVIEW OF SYSTEMS. FAMILY HISTORY IS NONCONTRIBUTORY. MEDICINES ARE ASPIRIN. ALLERGIES ARE SULFA Relevant Physical Exam: GENERAL: HEALTHY 51-YEAR-OLD FEMALE NO ACUTE DISTRESS, AFEBRILE. HEENT NONICTERIC WITHOUT ADENOPATHY. CHEST CLEAR. COR REGULAR RHYTHM. ABDOMEN SOFT WITH WELL-HEALED RIGHT LOWER QUADRANT INCISION. EXTREMITIES: ABSENT PEDAL PULSES ON THE RIGHT INCLUDING A RIGHT FEMORAL PULSE WITH FULL PEDAL PULSES ON THE LEFT/CAPILLARY FILLING ON THE RIGHT IS MORE SLUGGISH. NEURO: PHYSIOLOGIC AND SYMMETRIC. SKIN: NO BREAKDOWN OR RASHES OR OTHER LESIONS. PSYCH: ALERT ORIENTED AND COOPERATIVE Cardiorespiratory Assessment: IMPRESSION: PROBABLE RIGHT ILIOFEMORAL GRAFT THROMBOSIS. PLAN: ADMIT FOR CT ANGIOGRAM AND PROBABLE AORTOGRAM WITH THROMBOLYSIS. RISKS AND OPTIONS FULLY DISCUSSED
[2017-06-24] MEDS ORDERED: IOPAMIDOL (ISOVUE-300) 100 ML BTL ONE (15:43)
[2017-06-24] MEDS ORDERED: MIDAZOLAM 2 MG/2 ML VIAL ONE (16:20)
[2017-06-24] MEDS ORDERED: fentaNYL 100 MCG/2 ML INJ ONE (16:20)
[2017-06-24 16:25] LABS: % IMMATURE GRANULYOCYTES 0.2 % (0.0-1.1); ABSOLUTE IMMATURE GRANULOCYTES 0.02 10^3/uL (0.00-0.10); ADD DIFF? NO; ADD MORPH? NO; ADD SCAN? NO; ATYPICAL LYMPHOCYTE FLAG 10 (0-99); FRAGMENT RBC FLAG 0 (0-99); HEMATOCRIT 42.7 % (38.0-47.0); HEMOGLOBIN 14.7 g/dL (12.6-16.3); LEFT SHIFT FLG 0 (0-99); LIPEMIA HEMOLYSIS FLAG 90 (0-99); MEAN CELL HEMOGLOBIN 30.6 pg (27.9-34.1); MEAN CELL HEMOGLOBIN CONCENTR. 34.4 g/dL (32.4-36.7); MEAN PLATELET VOLUME 9.3 fL (8.7-11.7); PLATELET CLUMPS FLAG 0 (0-99); PLATELET COUNT 260 10^3/uL (150-400); RED CELL DISTRIBUTION WIDTH 13.4 % (11.5-15.2)
[2017-06-24 16:37] LABS: INR 1.04 (0.83-1.16); PROTIME(PATIENT) 13.5 SEC (12.0-15.0)
[2017-06-24 16:38] LABS: APTT 24.6 SEC (23.0-38.0)
[2017-06-24] MEDS ORDERED: HEPARIN/DEXTROSE 25,000 UNIT/500 ML BAG ONE (16:42)
[2017-06-24 16:45] LABS: ALANINE AMINOTRANSFERASE 37 IU/L (9-52); ALBUMIN 4.7 g/dL (3.5-5.0); ALKALINE PHOSPHATASE 54 IU/L (38-126); ANION GAP 14 mEq/L (8-16); ASPARTATE AMINOTRANSFERASE 24 IU/L (14-46); BILIRUBIN,TOTAL 0.5 mg/dL (0.1-1.4); CALCIUM 9.7 mg/dL (8.5-10.4); CARBON DIOXIDE 25 mEq/l (22-31); CHLORIDE 100 mEq/L (97-110); CREATININE 0.7 mg/dL (0.6-1.0); GLOMERULAR FILTRATION RATE > 60; GLUCOSE 78 mg/dL (70-100); POTASSIUM 3.9 mEq/L (3.5-5.2); SODIUM 139 mEq/L (134-144); TOTAL PROTEIN 7.9 g/dL (6.3-8.2)
[2017-06-24] MEDS ORDERED: ALTEPLASE 5 MG in NS 100 ML IV ONE (17:45)
[2017-06-24] MEDS ORDERED: PROMETHAZINE HCL 25 MG/ML INJ IVP PRN (18:37)
[2017-06-24] MEDS ORDERED: ALTEPLASE 5 MG in NS 100 ML IV SCH (18:45)
[2017-06-24] MEDS: D5W 1/2 NS W/ 20 KCl/L 1,000 ML IV SCH (18:49)
--- NOTE | 2017-06-24 18:55 | POSTOPPROG ---
Post Op Note Date of Operation: 06/24/17 Surgeon: Mino Knight Anesthesia: IV Sedation Pre-op Diagnosis: Rt external iliac-common femoral graft thrombosis Post-op Diagnosis: Same Indication: Rt external iliac-common femoral graft thrombosis Procedure: Pelvic and RLE angiography, CDI of Rt external iliac-common femoral graft Findings: See report Inf/Abcess present in the surg proc area at time of surgery?: No Complications: No immediate
[2017-06-25 01:11] LABS: APTT 28.8 SEC (23.0-38.0)
[2017-06-25] MEDS: HYDROmorphONE/DILAUDID 1 MG/ML SYR IVP PRN ×3 (04:41→19:22)
[2017-06-25] MEDS: D5W 1/2 NS W/ 20 KCl/L 1,000 ML IV SCH (04:41)
[2017-06-25 06:18] LABS: % IMMATURE GRANULYOCYTES 0.4 % (0.0-1.1); ABSOLUTE IMMATURE GRANULOCYTES 0.02 10^3/uL (0.00-0.10); ADD DIFF? NO; ADD MORPH? NO; ADD SCAN? NO; ATYPICAL LYMPHOCYTE FLAG 10 (0-99); FRAGMENT RBC FLAG 0 (0-99); HEMOGLOBIN 11.6 g/dL (12.6-16.3); LEFT SHIFT FLG 0 (0-99); LIPEMIA HEMOLYSIS FLAG 80 (0-99); MEAN CELL HEMOGLOBIN 30.2 pg (27.9-34.1); MEAN CELL HEMOGLOBIN CONCENTR. 33.1 g/dL (32.4-36.7); MEAN CELL VOLUME 91.1 fL (81.5-99.8); MEAN PLATELET VOLUME 9.4 fL (8.7-11.7); PLATELET CLUMPS FLAG 0 (0-99); PLATELET COUNT 190 10^3/uL (150-400); RED BLOOD CELL COUNT 3.84 10^6/uL (4.18-5.33); RED CELL DISTRIBUTION WIDTH 13.5 % (11.5-15.2)
[2017-06-25 06:29] LABS: APTT 29.2 SEC (23.0-38.0)
--- NOTE | 2017-06-25 09:11 | SOAPPROG ---
JADA Progress Note Assessment/Plan: Assessment: 51 yo F w h/o right external iliac artery occlusion s/p iliofemoral bypass April 2016 and revision several days later who presented 1 day ago with acute re- occlusion of her graft. She is now s/p initiation of EKOS CDT POD#1. Pulses improved. On bedside US this am, the lysis catheter appears within the distal graft and the distal graft appears patent. Plan: 1. Continue TPA @ 0.5 mg/hr and heparin at 300 units/hr. 2. Lysis check this afternoon. 06/25/17 08:43 Subjective: Tired this morning but says RLE pain is improved. Endorses low back pain which she believes is due to lying flat in bed, which she typically doesn't do. Objective: Vital Signs Temp Pulse Resp BP Pulse Ox 36.4 C 57 L 15 89/58 L 100 06/25/17 04:00 06/25/17 06:00 06/25/17 06:00 06/25/17 06:00 06/25/17 06:00 Laboratory Results 06/25/17 06:00 06/24/17 16:10 06/24/17 06/25/17 06/26/17 05:59 05:59 05:59 Intake Total 2158 Output Total 800 Balance 1358 PT 13.5 SEC (12.0-15.0) 06/24/17 16:10 INR 1.04 (0.83-1.16) 06/24/17 16:10 Gen: Awake, alert, NAD Heart: Sinus ashleigh Resp: Normal effort, equal excursions Abd: NTND Left groin: Dressing intact, small blood around sheath insertion site, no palpable hematoma Pulses: 2+ left, 1+ right MSK: No CCE On bedside US of right groin, lysis catheter seen within distal graft, which appears patent. - Time Spent With Patient Time Spent With Patient: 15 ICD10 Worksheet Patient Problems: Problems Problem Status Onset Arterial occlusion Acute
[2017-06-25] MEDS: ONDANSETRON 4 MG/2 ML VIAL IVP PRN ×3 (11:30→19:19)
[2017-06-25] MEDS ORDERED: fentaNYL 100 MCG/2 ML INJ ONE (12:28)
[2017-06-25] MEDS: fentaNYL 100 MCG/2 ML INJ IV PRN ×2 (12:30→16:08)
[2017-06-25] MEDS ORDERED: fentaNYL 100 MCG/2 ML INJ IVP PRN (12:31)
[2017-06-25 14:14] LABS: APTT 23.7 SEC (23.0-38.0)
--- NOTE | 2017-06-25 14:30 | SOAPPROG ---
SOAP Progress Note Assessment/Plan: Assessment: 51 female with rt ilio-femoral bypass occlusion sp thrombolysis palpable strong dp pulse/ foot warm and less painful with good cap filling Plan:await fu angiogram 06/25/17 14:28 Objective: Vital Signs Temp Pulse Resp BP Pulse Ox 36.9 C 62 31 H 111/67 96 06/25/17 08:00 06/25/17 12:00 06/25/17 12:00 06/25/17 12:00 06/25/17 12:00 Laboratory Results 06/25/17 06:00 06/24/17 16:10 06/24/17 06/25/17 06/26/17 05:59 05:59 05:59 Intake Total 2158 Output Total 800 Balance 1358 PT 13.5 SEC (12.0-15.0) 06/24/17 16:10 INR 1.04 (0.83-1.16) 06/24/17 16:10 ICD10 Worksheet Patient Problems: Problems Problem Status Onset Arterial occlusion Acute
[2017-06-25] MEDS ORDERED: MIDAZOLAM 2 MG/2 ML VIAL ONE (16:41)
[2017-06-25] MEDS ORDERED: HEPARIN 10,000 UNIT/10 ML MDV ONE (17:03)
[2017-06-25] MEDS ORDERED: IOPAMIDOL (ISOVUE-300) 100 ML BTL ONE (18:28)
[2017-06-25] MEDS ORDERED: HEPARIN 10,000 UNIT/10 ML MDV IVP ONE (19:37)
[2017-06-25] MEDS: HEPARIN/DEXTROSE 500 ML IV SCH (20:54)
[2017-06-25 21:05] LABS: % IMMATURE GRANULYOCYTES 0.2 % (0.0-1.1); ABSOLUTE IMMATURE GRANULOCYTES 0.02 10^3/uL (0.00-0.10); ADD DIFF? NO; ADD MORPH? NO; ADD SCAN? NO; ATYPICAL LYMPHOCYTE FLAG 0 (0-99); FRAGMENT RBC FLAG 0 (0-99); HEMATOCRIT 37.2 % (38.0-47.0); HEMOGLOBIN 12.6 g/dL (12.6-16.3); LEFT SHIFT FLG 0 (0-99); LIPEMIA HEMOLYSIS FLAG 90 (0-99); MEAN CELL HEMOGLOBIN 30.4 pg (27.9-34.1); MEAN CELL HEMOGLOBIN CONCENTR. 33.9 g/dL (32.4-36.7); MEAN CELL VOLUME 89.9 fL (81.5-99.8); MEAN PLATELET VOLUME 9.6 fL (8.7-11.7); PLATELET CLUMPS FLAG 0 (0-99); PLATELET COUNT 195 10^3/uL (150-400); RED BLOOD CELL COUNT 4.14 10^6/uL (4.18-5.33); RED CELL DISTRIBUTION WIDTH 13.2 % (11.5-15.2)
[2017-06-25 21:13] LABS: INR 1.14 (0.83-1.16); PROTIME(PATIENT) 14.5 SEC (12.0-15.0)
[2017-06-25 21:14] LABS: APTT 23.8 SEC (23.0-38.0)
[2017-06-25] MEDS: LORazepam 1 MG TAB PO PRN (22:10)
[2017-06-26] MEDS: OXYCODONE/APAP 5/325 TAB PO PRN ×3 (07:43→15:06)
--- NOTE | 2017-06-26 11:08 | SOAPPROG ---
JADA Progress Note Assessment/Plan: Assessment/Plan: - 51-year-old female status post right lower extremity revascularization, status post angiography for pulseless extremity No events overnight, repeat angiography yesterday showed no acute findings or anything concerning which would require intervention. Overnight she remained on a heparin drip which is therapeutic this morning. On examination, her foot is warm, she denies pain, she has a palpable DP pulse and a good PT signal which is consistent with her baseline. Plan for the day will be to transfer to PCU, start Coumadin and Plavix. Will check INR in the morning, anticipate she will be here over the weekend bridging her heparin with anticipated discharge early next week. Want the patient to get out of bed and do some walking today. 06/26/17 11:06 Subjective: Doing well this morning, denies pain in the right lower extremity. Tolerating regular diet. Objective: Vital Signs Temp Pulse Resp BP Pulse Ox 36.6 C 77 14 108/67 97 06/26/17 07:44 06/26/17 10:00 06/26/17 10:00 06/26/17 10:00 06/26/17 10:00 Laboratory Results 06/25/17 20:45 06/24/17 16:10 06/25/17 06/26/17 06/27/17 05:59 05:59 05:59 Intake Total 2158 2152 Output Total 800 6715 900 Balance 1358 -473 -900 PT 14.5 SEC (12.0-15.0) 06/25/17 20:45 INR 1.14 (0.83-1.16) 06/25/17 20:45 ICD10 Worksheet Patient Problems: Problems Problem Status Onset Arterial occlusion Acute
[2017-06-26] MEDS ORDERED: NITROGLYCERIN/D5W 50 MG/250 ML BOTTLE IV ONE (11:09)
[2017-06-26] MEDS: CLOPIDOGREL BISULFATE 75 MG TAB PO SCH (12:02)
[2017-06-26] MEDS: D5W 1/2 NS W/ 20 KCl/L 1,000 ML IV SCH ×2 (12:07→19:17)
[2017-06-26] MEDS ORDERED: SODIUM CL NASAL 45 ML BTL EACHNARE PRN (15:48)
[2017-06-26] MEDS: HYDROmorphONE/DILAUDID 1 MG/ML SYR IVP PRN (15:53)
[2017-06-26] MEDS: ONDANSETRON 4 MG/2 ML VIAL IVP PRN ×2 (15:53→21:10)
[2017-06-26] MEDS: WARFARIN SODIUM 5 MG TAB PO SCH (15:54)
[2017-06-26] MEDS: fentaNYL 100 MCG/2 ML INJ IV PRN (18:03)
[2017-06-26] MEDS: LORazepam 1 MG TAB PO PRN (19:16)
[2017-06-27] MEDS: LORazepam 1 MG TAB PO PRN (03:44)
[2017-06-27 05:21] LABS: INR 1.06 (0.83-1.16); PROTIME(PATIENT) 13.7 SEC (12.0-15.0)
[2017-06-27] MEDS: CLOPIDOGREL BISULFATE 75 MG TAB PO SCH (09:08)
[2017-06-27] MEDS: HEPARIN/DEXTROSE 500 ML IV SCH (09:32)
[2017-06-27] MEDS: HEPARIN 10,000 UNIT/10 ML MDV IVP PRN ×2 (09:36→22:10)
[2017-06-27] MEDS ORDERED: SUMAtriptan 50 MG TAB PO PRN (10:10)
[2017-06-27] MEDS ORDERED: ACET/CAFFEINE/BUTA FIORICET 1 EACH TAB PO PRN (10:10)
--- NOTE | 2017-06-27 11:03 | SOAPPROG ---
JADA Progress Note Assessment/Plan: Assessment/Plan: - 51-year-old female status post right lower extremity revascularization, status post angiography for pulseless extremity Did well again overnight, the right lower extremity remains warm with a palpable DP. Patient's only complaint today is headache, and desire for a definitive plan. At this point, we will continue heparin drip until therapeutic INR is achieved on Coumadin. Continue Coumadin and Plavix in the meantime. Hesitant to discharge her home on Lovenox bridge at this juncture. 06/26/17 11:06 06/27/17 11:02 Subjective: Doing well, complaining of headache this morning. Objective: Vital Signs Temp Pulse Resp BP Pulse Ox 37.1 C 67 14 123/82 H 96 06/27/17 08:35 06/27/17 08:35 06/27/17 08:35 06/27/17 08:35 06/27/17 08:35 Laboratory Results 06/27/17 04:44 06/24/17 16:10 06/26/17 06/27/17 06/28/17 05:59 05:59 05:59 Intake Total 2152 3438 Output Total 0517 900 Balance -473 2868 PT 13.7 SEC (12.0-15.0) 06/27/17 04:44 INR 1.06 (0.83-1.16) 06/27/17 04:44 ICD10 Worksheet Patient Problems: Problems Problem Status Onset Arterial occlusion Acute
[2017-06-27] MEDS ORDERED: LACTULOSE 20 GM/30 ML UDCUP PO PRN (12:42)
[2017-06-27] MEDS ORDERED: POLYETHYLENE GLYCOL 3350 17 GM PKT PO PRN (12:42)
[2017-06-27] MEDS ORDERED: MAGNESIUM HYDROXIDE 30 ML UDCUP PO PRN (12:42)
[2017-06-27] MEDS ORDERED: BISACODYL 10 MG SUPP PR PRN (12:42)
[2017-06-27] MEDS: WARFARIN SODIUM 5 MG TAB PO SCH (16:15)
[2017-06-27] MEDS: SENNOSIDES/DOCUSATE SODIUM TAB PO SCH (21:24)
[2017-06-28 05:02] LABS: INR 1.12 (0.83-1.16); PROTIME(PATIENT) 14.3 SEC (12.0-15.0)
[2017-06-28 07:56] VITALS: BP 135/80; PULSE 62; RESP 13; TEMP 98.4; O2SAT 96
[2017-06-28] MEDS: CLOPIDOGREL BISULFATE 75 MG TAB PO SCH (08:27)
[2017-06-28] MEDS: SENNOSIDES/DOCUSATE SODIUM TAB PO SCH (08:28)
--- NOTE | 2017-06-28 08:42 | SOAPPROG ---
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 DP and PT 2+ bilaterally. Currently being bridged to Coumadin. Plan/recs: 1. No new recs from an IR standpoint. IR will sign off. 2. Anticoagulation per primary team. Thank you for the opportunity to assist in the care of Mrs. Ty. 06/25/17 08:43 06/28/17 08:37 Subjective: Pt seen and examined this am. Pt frustrated that she is still in the hospital. She feels that she is ready to go home. Has tolerated short walks around the hospital well. Objective: Vital Signs Temp Pulse Resp BP Pulse Ox 36.9 C 62 13 135/80 H 96 06/28/17 07:55 06/28/17 07:55 06/28/17 07:55 06/28/17 07:55 06/28/17 07:55 Laboratory Results 06/27/17 04:44 06/24/17 16:10 06/27/17 06/28/17 06/29/17 05:59 05:59 05:59 Intake Total 3768 2132 Output Total 900 Balance 2868 2132 PT 14.3 SEC (12.0-15.0) 06/28/17 04:14 INR 1.12 (0.83-1.16) 06/28/17 04:14 Gen: Awake, alert, NAD Heart: RRR Resp: Equal excursions, normal effort Groin: Mild bruising around Lt HYDRAULIC TESTER access site, small non-pulsatile lump over closure site, likely the Angio-Seal, no hematoma, mildly tender Pulses: 2+ DP/PT bilaterally MSK: No CCE ICD10 Worksheet Patient Problems: Problems Problem Status Onset Arterial occlusion Acute
[2017-06-28] MEDS ORDERED: ASPIRIN EC 81 MG TAB PO SCH (09:00)
--- NOTE | 2017-06-28 10:29 | SOAPPROG ---
JADA Progress Note Assessment/Plan: 51 Y F hx ileofem arterial bypass c graft, s/p thrombosed graft while on ASA now s/p successful thrombolysis. No obvious reason for thrombosis--nothing to surgically revise. Good pedal pulses now. Currently on heparin gtt, plavix, coumadin. INR 1.1. Patient very eager to go home despite wanting hematology consult. Discussed case with Dr. Guerrero who agrees to see patient today in house. Plan for d/c after seeing Dr. Guerrero. Will need rx coumadin, plavix, and lovenox. Will set up INR check on Wednesday but will defer to Dr. Guerrero if he prefers otherwise. S: frustrated that she is dealing with this. no pain. walking fine. extremely eager for d/c. O: alert, nad, wdwn no wob abd soft, inc well healed ext: warm, palpable pedal pulses. no swelling. well healed groin scar 06/28/17 10:24 Objective: Vital Signs Temp Pulse Resp BP Pulse Ox 36.9 C 62 13 135/80 H 96 06/28/17 07:55 06/28/17 07:55 06/28/17 07:55 06/28/17 07:55 06/28/17 07:55 Laboratory Results 06/27/17 04:44 06/24/17 16:10 06/27/17 06/28/17 06/29/17 05:59 05:59 05:59 Intake Total 3768 2132 Output Total 900 Balance 2868 2132 PT 14.3 SEC (12.0-15.0) 06/28/17 04:14 INR 1.12 (0.83-1.16) 06/28/17 04:14 ICD10 Worksheet Patient Problems: Problems Problem Status Onset Arterial occlusion Acute
[2017-06-28] MEDS ORDERED: ENOXAPARIN 60 MG/0.6 ML SYR SC SCH (10:30)
--- NOTE | 2017-06-28 12:48 | GCON ---
[f rep st] CONSULTATION HEME/ONC CONSULTATION REASON FOR CONSULTATION: Second thrombotic event for an iliofemoral bypass. RECOMMENDATIONS: 1. Further testing for lupus anticoagulant. 2. I agree with warfarin and Plavix at this time, and will continue that until an uncertain future date. HISTORY OF PRESENT ILLNESS: This is a very pleasant 51-year-old woman who presented in April 2017 a history of an acute thrombotic event of the distal iliac artery. She went to surgery on April 08, and at that time had an area of vascular abnormality, but I do not believe it was atheroscleroti c disease, that was located underneath the inguinal ligament, but it was a fairly long segment of ar lucy. A bypass was performed, but unfortunately the patient had a significant reocclusion within 24 hours. She had an embolus at the origin of the superficial femoral artery, as well as some distal vessel emboli. Incisions were made down to the vessels and Alfonso catheters were placed removing e mboli that were occluding the origin of the superficial femoral artery. A Alfonso was passed distal ly with removal of the distal clot. Intraoperative angiography which showed some distal clot was re solved with a catheter. Then, tPA was run down the distal vessels and showed good flow. The patien t recovered and was placed on aspirin 81 mg, and then presented on June 24 with a new thrombotic event. The patient again had thrombosis in the right iliac artery and the patient had thrombolytic therapy. Flow was established and the patient was then placed on heparin and warfarin, and now she presents for discussion upon referral from Dr. Peterson' office. She had no evidence of thrombocytosis. Her platelet count was normal at 260. A previous evaluation revealed that she had a protein C which was normal at 123% on May 20, protein S which was normal at 91% on May 20, antithrombin 3 was slightly elevated at 132% on May 20, Factor V Leiden was negative, fibrinogen was normal at 243 and the PT and PTT were normal. The patient had anticardiol ipin antibodies, IgG and IgM, which were negative. I have been asked to see her to determine if there is any kind of a hemophilic disorder. Apparently, the runoff is good from the graft. PAST MEDICAL HISTORY: Fairly unremarkable. There is no detailed history of any cardiac disease. N o GI disease. She is a nondrinker. She has a remote history of hypertension. She has a past histo ry of gallbladder disease in 2013, at which time she had a cholecystectomy. FAMILY HISTORY: Unremarkable for any thrombosis. SOCIAL HISTORY: Reveals she has several children who are healthy. She works at [employer]. Her hus band is a physical therapist. REVIEW OF SYSTEMS: Negative otherwise. Currently, she does not have any lower extremity discomfort . PHYSICAL EXAMINATION: SKIN: Reveals she has an arteriotomy incision in the left groin, which is he aled. The right groin and right lower quadrant incisions are well-healed. EXTREMITIES: Pedal puls es are present bilaterally. Both feet are a little cold, but they have the same coloration. There is no evidence for ischemia. ABDOMEN: There is no hepatosplenomegaly. LUNGS: Are clear. CV: Re gular rhythm, without murmur. NEUROPSYCHIATRIC: She is alert and oriented. Neurologically she is intact. ASSESSMENT: She has had 2 episodes of arterial thrombosis in a grafted right lower extremity, which was initially performed because of a total occlusion of the distal iliac artery. The underlying ca use for the original thrombosis is not clear. There were no arterial biopsies performed. We do not have a good explanation. The re-thrombotic episodes apparently are not due to poor runoff. PLAN: Regardless at this point, I am recommending that she be fully anticoagulated with warfarin to a therapeutic INR of 2-3, and that this be continued at least for 6 months for evaluation and then it can be using best clinical judgment to evaluate continued anticoagulation. She should remain on Plavix as well. Incidentally, there is not a lot of good data in the medical literature on duration of anticoagulati on in this setting, and I have reviewed the [employer]'s recommendations as well as a literature search. I did check her for a lupus anticoagulant again with an anti beta 2 glycoprotein 1 antibodies, and I also checked for prothrombin mutation, although again that is mostly venous thromboembolism, and I checked for collagen vascular diseases. I have asked her to follow up at least once as an outpatient in about 3 weeks. She is in agreement with the plan. /[id number]/MODL
[2017-06-30 14:23] LABS: BETA 2 GLYCOPROTEIN I IGG <9.4 U/mL; BETA 2 GLYCOPROTEIN IGM <9.4 U/mL
[2017-07-01 08:25] LABS: INTERPRETATION See Comments
[2017-07-02 09:32] LABS: DILUTE RUSSELLS VIPER VENOM 1.4 ratio (0.0 - 1.1); INR 1.2; INTERPRETATION See Comments; PTT 38 sec (26 - 36)
[2017-07-02 10:20] LABS: DRVVT CONFIRM RATIO 1.3 ratio (0.0 - 1.1); FACTOR IX ACTIVITY 96 % (65 - 140); FACTOR VIII ACTIVITY 216 % (55 - 200); FACTOR XI ACTIVITY 122 % (55 - 150); FACTOR XII ACTIVITY 126 % (55 - 180); PTT 1:1 NORMAL PLASMA 33 sec (26 - 36); REPTILASE TIME 17 sec (14 - 23); THROMBIN TIME 24 sec (15 - 23)
== END 2017-06-28 12:59 | disposition home or self-care (01) | DRG 272 ==
LOC: F3E 13:13 → OBSVTOIN 13:13 → F3E 14:29 → F2N 16:56 → F2W 06-27 08:30
PROVIDERS: ADMIT Surgery; ATTEND Surgery
PROC: 04CH3ZZ Extirpation of Matter from Right External Iliac Artery, Percutaneous Approach (ICD-10-PCS; principal; 2017-06-24)
PROC: 04CK3ZZ Extirpation of Matter from Right Femoral Artery, Percutaneous Approach (ICD-10-PCS; principal; 2017-06-24)
DX: T82.868A Thrombosis due to vascular prosthetic devices, implants and grafts, initial encounter (principal)
CPT/HCPCS: 85240-90; 85250-90; 85270-90; 85280-90; 85520-90; 85635-90; 85670-90; 86225-90; C1757; C1760; C1769; C1892; C1894; J1170; J1644; J1650; J2250; J2405; J2550; J2997; J3010; Q9967

== ENCOUNTER 2018-01-08 11:42 | Emergency (ER) | payer OTHER ==
[2018-01-08 11:51] VITALS: TEMP 98.1
--- NOTE | 2018-01-08 13:05 | EDPHY ---
H & P Stated Complaint: ECOS last week, left leg numbness can't palpate pulse Time Seen by Provider: 01/08/18 12:27 HPI/ROS: CHIEF COMPLAINT: Ischemic pain left leg HISTORY OF PRESENT ILLNESS: The patient presents to the ED with complaints of left leg pain for the past day. The patient has a complicated past medical history involving a prior right femoral artery occlusion. She had surgery on the artery and subsequently developed reocclusion. This was treated with interventional radiology x2. Most recently she was at the [facility] where she was found to have an additional occlusion which was treated interventional radiology. Days after that she developed some slow flow through the prior graft and was taken back for a stent. She is chronically anticoagulated. She presents to the ED today with complaints of left leg pain, coolness and a decreased palpable pulse. The patient did have her left femoral artery cannulated twice over the past month. REVIEW OF SYSTEMS: A comprehensive 10 point review of systems is otherwise negative aside from elements mentioned in the history of present illness. Source: Patient Exam Limitations: No limitations - Personal History Current Tetanus/Diphtheria Vaccine: Yes Current Tetanus Diphtheria and Acellular Pertussis (TDAP): Yes Tetanus Vaccine Date: < 10 years - Medical/Surgical History Hx Asthma: No Hx Chronic Respiratory Disease: No Hx Diabetes: No Hx Cardiac Disease: No Hx Renal Disease: No Hx Cirrhosis: No Hx Alcoholism: No Hx HIV/AIDS: No Hx Splenectomy or Spleen Trauma: No Other PMH: L knee, , Right iliofemoral bypass, ECOS, DVT - Social History Smoking Status: Never smoked - Physical Exam Exam: General Appearance: Alert, no distress Eyes: Pupils equal and round no pallor or injection ENT, Mouth: Mucous membranes moist Respiratory: There are no retractions, lungs are clear to auscultation Cardiovascular: Regular rate and rhythm Gastrointestinal: Abdomen is soft and nontender, no masses, bowel sounds normal Neurological: 5/5 strength all 4 extremities Skin: Warm and dry, no rashes Musculoskeletal: Neck is supple nontender Extremities: Patient does have a dopplerable pulse in the left foot, more significant palpable pulse noted in the right foot Constitutional: Initial Vital Signs Temperature (C) 36.7 C 01/08/18 11:48 Heart Rate 86 01/08/18 11:48 Respiratory Rate 20 01/08/18 11:48 Blood Pressure 137/96 H 01/08/18 11:48 O2 Sat (%) 98 01/08/18 11:48 O2 Delivery Mode Room Air Allergies/Adverse Reactions: sulfa Allergy (Uncoded 01/08/18 11:46) Other-Enter Comments Home Medications: Medication Instructions Recorded SUMAtriptan [Imitrex 50 MG (*)] 50 mg PO DAILY PRN 03/26/14 Acet/Caffeine/Buta Fioricet 1 - 2 each PO Q4HRS PRN 04/07/17 [Fioricet (*)] Herbals/Supplements -Info Only 1 ea PO DAILY 04/07/17 [place]-3 Fatty Acids [Fish Oil 1000 1,000 mg PO DAILY 04/07/17 mg (*)] Vitamin B Complex [B Complex] 1 each PO DAILY 04/07/17 Clopidogrel Bisulfate [Plavix (*)] 75 mg PO DAILY #60 tab 06/28/17 Eliquis 01/08/18 Medical Decision Making - Diagnostics Imaging Results: Imaging Impressions Arterial/Peripheral Duplex 01/08/18 13:00 Impression: 1. Focal narrowing suspected involving the left common iliac artery probably in the order of about 50-65%. If indicated, consider confirmation with CT angiogram or catheter angiogram as clinically directed. There is dampened flow to the left lower extremity with velocity measurements diminished when comparing left and right sides. Findings discussed with Douglas Harrison at 15:10 hour, 01/08/2018. Pseudoaneurysm Repair US 01/08/18 13:00 Impression: 1. No ultrasound evidence of pseudoaneurysm in the left groin. 2. Small hematoma superficial to the left common femoral vessels. Findings discussed with Douglas Harrison at 15:10 hour, 01/08/2018. ED Course/Re-evaluation: The patient presents to the ED for evaluation of decreased pulses in her left leg following a angiographic procedure earlier this month at the [facility]. The patient does have dopplerable pulses. The patient does have evidence of a hematoma in her left groin. The patient has requested that we perform ultrasound studies and not have a CT scan performed his initial imaging modality given the number of studies she has had the past. Arterial studies have also been ordered. The patient has no evidence of pseudoaneurysm. The patient does have a 50-60% stenosis noted in her left common iliac artery. I discussed this with her vascular surgeon at the [facility]. This is a chronic finding. At this point time the patient has no evidence of an ischemic leg. The patient is comfortable being discharged home. She is fully anticoagulated and on a anti-platelet agent. The patient will be advised to return to the ED for any symptoms of worsening leg ischemia. The patient does have a personal cell phone for her vascular surgeon at the [facility]. Differential Diagnosis: Differential diagnosis considered includes pseudoaneurysm, hematoma, arterial injury, arterial dissection, limb ischemia Departure - Departure Disposition: Home, Routine, Self-Care Clinical Impression: Iliac artery stenosis, bilateral Condition: Good Instructions: Peripheral Vascular Angioplasty (DC) Additional Instructions: 1. Return to the ED for severe leg pain, change in color, numbness, weakness or other concerns. 2. Please follow up with your vascular specialist at the [facility] this week for recheck. 3. Continue all your regular medications including Plavix and your anticoagulant. Referrals: Georgina Quinn PA [Primary Care Provider] - As per Instructions
[2018-01-08 15:41] VITALS: RESP 16
[2018-01-08] MEDS ORDERED: NS 1,000 ML IV ONE (16:52)
[2018-01-08] MEDS ORDERED: IOPAMIDOL (ISOVUE-370) 150 ML BTL IV ONE (17:12)
[2018-01-08 18:36] VITALS: BP 124/84; PULSE 83; O2SAT 98
== END 2018-01-08 18:35 | disposition home or self-care (01) ==
DX: I77.1 Stricture of artery (principal); E86.9 Volume depletion, unspecified; Z79.01 Long term (current) use of anticoagulants
CPT/HCPCS: 82947-QW; Q9967

== ENCOUNTER → 2018-08-12 | Outpatient (CLI) | payer OTHER | LOC: FIMAGING 08:58 | DX: Z09 Encounter for follow-up examination after completed treatment for conditions other than malignant neoplasm (principal); Z95.5 Presence of coronary angioplasty implant and graft | CPT/HCPCS: Q9967 ==

== ENCOUNTER 2018-09-30 14:43 | Inpatient (IN) | payer OTHER ==
--- NOTE | 2018-09-30 15:21 | EDPHY ---
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 She sustained a nontraumatic iliofemoral thrombosis in 2017 and was ultimately diagnosed with iliofemoral fibrosis. Underwent a iliofemoral bypass initially. She had recurrent arterial thrombosis in the right lower extremity despite anticoagulation and ultimately had a stent placed in the right external iliac artery. She was on Eliquis and Plavix after the stent placement and stopped anticoagulation 1 month ago. Today she was skiing and developed moderate achiness and cramping in her right calf and thigh, very reminiscent of prior clot. The cramping worsens with exertion and is partially alleviated with rest. She continues to have mild pain in her right calf and foot. Both feet feel cool. No numbness or weakness. REVIEW OF SYSTEMS: complete 10 point ROS reviewed and is negative except for the noted elements in the HPI - Personal History LMP (Females 10-55): IUD In Place Current Tetanus Diphtheria and Acellular Pertussis (TDAP): Yes Tetanus Vaccine Date: < 10 years - Medical/Surgical History Hx Asthma: No Hx Chronic Respiratory Disease: No Hx Diabetes: No Hx Cardiac Disease: No Hx Renal Disease: No Hx Cirrhosis: No Hx Alcoholism: No Hx HIV/AIDS: No Hx Splenectomy or Spleen Trauma: No Other PMH: Iliofemoral fibrosis. Right iliofemoral bypass with stent - Family History Significant Family History: No pertinent family hx - Social History Smoking Status: Never smoked Alcohol Use: Sober Drug Use: None Additional Social History: - Physical Exam Exam: General Appearance: Alert, pleasant Eyes: Pupils equal and round, no conjunctival pallor ENT, Mouth: Mucous membranes moist Neck: Normal inspection Respiratory: Lungs are clear to auscultation Cardiovascular: Regular rate and rhythm Gastrointestinal: Abdomen is soft and nontender Neurological: A&O, motor 5/5 BLE, sensory intact to light touch BLE Skin: Warm and dry, no rash Extremities: Right lower extremity-normal inspection, normal color, cool toes ( similar to cool left toes); no tenderness/swelling of the thigh or calf Vascular: Unable to palpate a right dorsalis pedis or posterior tibial pulse with delayed cap refill rt toes; 1+ left dorsalis pedis pulse Psychiatric: Mood and affect normal Constitutional: Initial Vital Signs Temperature (C) 36.6 C 09/30/18 14:47 Heart Rate 69 09/30/18 14:47 Respiratory Rate 16 09/30/18 14:47 Blood Pressure 156/96 H 09/30/18 14:47 O2 Sat (%) 97 09/30/18 14:47 O2 Delivery Mode Room Air Allergies/Adverse Reactions: sulfa Allergy (Uncoded 01/08/18 11:46) Other-Enter Comments Home Medications: Medication Instructions Recorded SUMAtriptan [Imitrex 50 MG (*)] 50 mg PO DAILY PRN 03/26/14 Acet/Caffeine/Buta Fioricet 1 - 2 each PO Q4HRS PRN 04/07/17 [Fioricet (*)] Herbals/Supplements -Info Only 1 ea PO DAILY 04/07/17 [place]-3 Fatty Acids [Fish Oil 1000 1,000 mg PO DAILY 04/07/17 mg (*)] Aspirin [Aspirin 81mg (*)] 81 mg PO DAILY 09/30/18 Medical Decision Making ED Course/Re-evaluation: Rt dorsalis pedis pulse: able to locate with doppler. Presentation c/w recurrent thrombosis RLE. Arterial sono reveals a clot in the Rt ext iliac graft and stent. Consulted Dr. Leija, saw pt in ED and he consulted with Dr. Peterson and with the pt's vascular surgeon. Plan for CTA aorta with runoff. CTA reveals a long segment of clot in the rt ext iliac graft/stent. d/w pt and with Dr. Leija, Heparin per wt-based protocol initiated. Plan for IR thrombectomy with TPA in am when vascular surgery backup available. Pt understands the risks/benefits of anticoagulation, wishes to proceed. Serial exam of RLE unchanged throughout pt's ED stay. The hospitalist service was consulted for admission. This pt utilized 40 minutes of critical care time exclusive of unbundled procedures. Time spent in assessments, discussions with pt/family/consultants, ordering/review of studies, and therapy decisions. Organ at risk: RLE Differential Diagnosis: includes though not limited to DVT, muscular strain, cellulitis, osteomyelitis - Data Points Laboratory Results: Laboratory Results 09/30/18 16:48 09/30/18 16:48 Medications Given: Alteplase, Recombinant 5 mg/ (Sodium Chloride) 100 mls @ 0 mls/hr IV CONT VIKASH; Per Protocol PRN Reason: Protocol Stop: 03/30/19 17:59 Last Admin: 10/02/18 07:38 Dose: 100 mls Morphine Sulfate (Morphine) 2 - 4 mg IVP Q2HRS PRN PRN Reason: Pain, Severe Unable to Take PO Stop: 10/11/18 17:54 Last Admin: 10/02/18 07:45 Dose: 2 mg Ondansetron HCl (Zofran) 4 mg IVP Q4HRS PRN PRN Reason: Nausea/Vomiting, Can't Take PO Stop: 03/29/19 21:46 Last Admin: 10/02/18 07:38 Dose: 4 mg Oxycodone/Acetaminophen (Percocet 5/325) 1 - 2 tab PO Q4HRS PRN PRN Reason: Pain, Severe Able to Take PO Stop: 10/10/18 21:46 Last Admin: 10/02/18 06:31 Dose: 1 tab Discontinued Medications Acetaminophen (Tylenol) 650 mg PO EDNOW ONE Stop: 10/01/18 19:56 Last Admin: 09/30/18 20:01 Dose: 650 mg Fentanyl (Sublimaze) 0 mcg IVP ONCALL PRN PRN Reason: Per provider during procedure Stop: 10/01/18 17:14 Last Admin: 10/01/18 16:35 Dose: 200 mcg Heparin Sodium (Porcine) (Heparin Injection) 0 unit IVP EDNOW ONE Stop: 09/30/18 18:59 Last Admin: 09/30/18 19:50 Dose: 4,600 units Heparin Sodium (Porcine) (Heparin 50 Units/Ml (Premix)) 500 mls @ 0 mls/hr IV EDNOW ONE; Per Protocol PRN Reason: Protocol Stop: 09/30/18 18:59 Last Admin: 09/30/18 19:51 Dose: 500 mls Midazolam HCl (Versed) 0 mg IVP ONCALL PRN PRN Reason: Per provider during procedure Stop: 10/01/18 17:14 Last Admin: 10/01/18 16:35 Dose: 4 mg Departure - Departure Disposition: [facility] Acute Condition: Fair
[2018-09-30 17:26] LABS: PLATELET COUNT 218 10^3/uL (150-400)
[2018-09-30] MEDS ORDERED: IOPAMIDOL (ISOVUE 370) 100 ML BTL IV ONE (18:08)
[2018-09-30] MEDS ORDERED: HEPARIN 10,000 UNIT/10 ML MDV (1,000 UNIT/ML) IVP ONE (18:58)
[2018-09-30] MEDS ORDERED: HEPARIN/DEXTROSE 500 ML IV ONE (18:58)
[2018-09-30 19:21] LABS: INR 1.05 (0.83-1.16); PROTIME(PATIENT) 13.9 SEC (12.0-15.0)
[2018-09-30] MEDS ORDERED: ACETAMINOPHEN 325 MG TAB ONE (19:30)
[2018-09-30] MEDS ORDERED: ONDANSETRON DISINTEGRATING 4 MG TAB PO PRN (21:47)
[2018-09-30] MEDS ORDERED: OXYCODONE/APAP 5/325 TAB PO PRN (21:47)
[2018-09-30] MEDS ORDERED: ACETAMINOPHEN 325 MG TAB PO PRN (21:47)
[2018-09-30] MEDS ORDERED: ONDANSETRON 4 MG/2 ML VIAL IVP PRN (21:47)
[2018-09-30] MEDS ORDERED: HEPARIN 10,000 UNIT/10 ML MDV (1,000 UNIT/ML) IVP PRN (21:49)
[2018-09-30] MEDS ORDERED: HEPARIN/DEXTROSE 500 ML IV SCH (22:00)
--- NOTE | 2018-10-01 03:31 | GHP ---
DATE OF ADMISSION: 09/30/2018 CHIEF COMPLAINT: Right leg pain. HISTORY OF PRESENT ILLNESS: This is a 53-year-old female who about a year and a half ago developed c lotting of her right external iliac artery with occlusion. She underwent iliofemoral bypass. Since then, however, she has had 5 reocclusions of this bypass. She had a stent placed the last time. She has been getting her care at [facility]. About a month ago, she stopped her Plavix as she did not wan t to be on that medication anymore and her surgeon did not think that it was absolutely necessary. S he presented today with recurrent left lower extremity pain. She felt like this pain is reminiscent of previous clotting. REVIEW OF SYSTEMS: 10-point review of systems obtained and other than stated negative. PAST MEDICAL HISTORY: Iliofemoral fibrosis and external iliac artery clot/occlusion with stenting an d iliofemoral bypass. MEDICATIONS: None. SOCIAL HISTORY: No smoking. Is . FAMILY HISTORY: No history of clotting. PHYSICAL EXAMINATION: VITAL SIGNS: Afebrile. Blood pressure is 146/86, heart rate is 61, oxygen sa turation 94% on room air. GENERAL: Patient is well developed, in no apparent distress. HEENT: Non icteric. Sclerae intact. Moist mucous membranes. NECK: Supple. No thyromegaly. LUNGS: Good eff ort. Clear to auscultation bilaterally. CARDIOVASCULAR: Regular rate and rhythm. No murmurs or ga llops. ABDOMEN: Positive bowel sounds. Soft, nontender, nondistended. No hepatosplenomegaly. EXT REMITIES: No visible changes in the right leg. Absent pedal pulses. NEURO: Alert x3. Moving all 4 extremities equally. PSYCH: Normal affect. LABORATORY DATA: CBC is normal. Coags are normal. Chemistries normal. CTA shows occlusion of the majority of the stent in the right external iliac artery with good restitu tion of the right common femoral artery. Also some thickening in the left common femoral artery. ASSESSMENT: This is a 53-year-old female with recurrent clotting of her external iliac artery. PLAN: External iliac artery stent occlusion. Interventional Radiology and General Surgery have been discussing this case. The plan will be to continue with IV heparin overnight and then consider thro mbectomy in the morning. Patient, however, is considering transfer to [facility]. She w ill decide this in the morning. /[id number]/MODL
[2018-10-01 06:02] LABS: PLATELET COUNT 211 10^3/uL (150-400)
--- NOTE | 2018-10-01 10:01 | PDMN ---
Medical Necessity Medical necessity: MCG Vascular disease: leg pain, PMHx of iliofemoral bypass with mult. reocclusions- stent placed last time, pt recently stopped Plavix CTA shows occlusion of majority of stent graft R external iliac artery anticipate > 2 MN pt considering thrombectomy vs t-isabel
--- NOTE | 2018-10-01 10:55 | SOAPPROG ---
JADA Progress Note Assessment/Plan: Assessment: FOOT AND LEG ARE STABLE WITH DECREASED BLOOD FLOW BUT QUITE VIABLE AND MINIMAL DISCOMFORT LONG DISCUSSION AGAIN ABOUT THE RISKS AND OPTIONS INCLUDING NON THROMBOLYSIS TO HELP DELINEATE THE ANATOMY AND POSSIBLE NEED FOR A NEW BYPASS GRAFT IN A DIFFERENT PATHWAY PATIENT IS WAITING FOR HER TO DISCUSS THESE ISSUES AND POSSIBLY TRANSFER TO HER VASCULAR SURGEON IN [place] Plan: AWAIT THE THROMBOLYSIS RESULTS/WILL REVIEW OLD CT A'S 10/01/18 10:53 Objective: Vital Signs Temp Pulse Resp BP Pulse Ox 36.6 C 60 18 103/74 95 10/01/18 07:44 10/01/18 07:44 10/01/18 07:44 10/01/18 07:44 10/01/18 07:44 Laboratory Results 10/01/18 05:49 09/30/18 10/01/18 10/02/18 05:59 05:59 05:59 Intake Total 637.6 Output Total 1 Balance 636.6 PT 13.9 SEC (12.0-15.0) 09/30/18 16:52 INR 1.05 (0.83-1.16) 09/30/18 16:52 ICD10 Worksheet Patient Problems: Problems Problem Status Onset Arterial occlusion Acute
[2018-10-01] MEDS ORDERED: IOPAMIDOL (ISOVUE-300) 100 ML BTL ONE (14:39)
[2018-10-01] MEDS ORDERED: LIDOCAINE 1% 300 MG/30 ML SDV ONE (14:40)
--- NOTE | 2018-10-01 16:01 | PDPROPOC ---
Sedation Plan of Care ASA Classification: ASA 2 Mallampati Score: Class 2 Mallampati Reference Image:
[2018-10-01] MEDS ORDERED: GLUCAGON HCL 1 MG VIAL IVP PRN (16:13)
[2018-10-01] MEDS ORDERED: ALTEPLASE 2 MG VIAL IVP PRN (16:13)
[2018-10-01] MEDS ORDERED: fentaNYL 100 MCG/2 ML INJ IVP PRN (16:13)
[2018-10-01] MEDS ORDERED: FLUMAZENIL 0.5 MG/5 ML MDV IVP PRN (16:13)
[2018-10-01] MEDS ORDERED: MIDAZOLAM 2 MG/2 ML VIAL IVP PRN (16:13)
[2018-10-01] MEDS ORDERED: NALOXONE HCL 0.4 MG/ML INJ IVP PRN (16:13)
[2018-10-01] MEDS ORDERED: HEPARIN 10,000 UNIT/10 ML MDV (1,000 UNIT/ML) IVP PRN (16:13)
[2018-10-01] MEDS ORDERED: PROTAMINE SULFATE 50 MG/5 ML VIAL IVP PRN (16:13)
[2018-10-01] MEDS ORDERED: MEPERIDINE 25 MG/ML SYR IVP PRN (16:13)
--- NOTE | 2018-10-01 16:37 | HOSPPROG ---
Hospitalist Progress Note Assessment/Plan: * Occluded stent graft RLE with limb ischemia -IV heparin -to IR for lytics today * Iliofemoral bypass with 5 re-occlusions -on Plavix and coumadin in past -now only on ASA -per Dr. Peterson may need re-do surgery - suspect mechanical obstruction * Left common femoral stenosis -suspect scar tissue due to previous access -makes procedure more difficult Subjective: Leg better Objective: Vital Signs Temp Pulse Resp BP Pulse Ox 36.8 C 62 16 130/72 H 97 10/01/18 16:00 10/01/18 16:00 10/01/18 16:00 10/01/18 16:00 10/01/18 16:00 Laboratory Results 10/01/18 05:49 09/30/18 10/01/18 10/02/18 05:59 05:59 05:59 Intake Total 637.6 Output Total 1 Balance 636.6 PT 13.9 SEC (12.0-15.0) 09/30/18 16:52 INR 1.05 (0.83-1.16) 09/30/18 16:52 OLD Chart reviewed at length regarding previous vascular history CTA with runoff - occlusion RLE - Physical Exam Constitutional: no apparent distress, appears nourished, not in pain Cardiovascular: regular rate and rhythym, no murmur, rub, or gallop Respiratory: no respiratory distress, no rales or rhonchi, clear to auscultation Gastrointestinal: normoactive bowel sounds, soft, non-tender abdomen, no palpable masses Skin: no rashes or abrasions, no fluctuance, no induration Neurologic: AAOx3, sensation intact bilaterally Psychiatric: interacting appropriately, not anxious, not encephalopathic, thought process linear ICD10 Worksheet Patient Problems: Problems Problem Status Onset Arterial occlusion Acute
[2018-10-01] MEDS ORDERED: HEPARIN/DEXTROSE 25,000 UNIT/500 ML BAG ONE (17:30)
[2018-10-01] MEDS ORDERED: ALTEPLASE IV SCH (17:31)
[2018-10-01] MEDS ORDERED: NS IV SCH (17:31)
[2018-10-01] MEDS ORDERED: MIDAZOLAM 2 MG/2 ML VIAL ONE (17:42)
[2018-10-01] MEDS ORDERED: fentaNYL 100 MCG/2 ML INJ ONE (17:42)
--- NOTE | 2018-10-01 17:54 | PDRADPN ---
Radiology Procedure Note Date of Procedure: 10/01/18 Radiologist: Shaunna Leija Anesthesia: IV Sedation Pre-op Diagnosis: R EIA clot Post-op Diagnosis: same Procedure: lysis day 1 Finding(s): soft thrombus throughout stent and graft, lysis catheter placed for overnight lysis Inf/Abcess present in the surg proc area at time of surgery?: No
[2018-10-01] MEDS ORDERED: LORazepam 1 MG TAB PO PRN (17:55)
[2018-10-01] MEDS ORDERED: PROMETHAZINE HCL 25 MG/ML INJ IVP PRN (17:55)
[2018-10-01] MEDS ORDERED: HEPARIN/DEXTROSE 500 ML IV SCH (18:00)
[2018-10-01] MEDS ORDERED: ACETAMINOPHEN 325 MG TAB PO ONE (19:55)
[2018-10-01] MEDS: ALTEPLASE 5 MG in NS 100 ML IV SCH (21:56)
[2018-10-02] MEDS: ALTEPLASE 5 MG in NS 100 ML IV SCH ×3 (02:31→13:46)
[2018-10-02 05:39] LABS: PLATELET COUNT 187 10^3/uL (150-400)
[2018-10-02] MEDS ORDERED: ACET/CAFFEINE/BUTA FIORICET 1 EACH TAB PO PRN (06:49)
--- NOTE | 2018-10-02 11:27 | SOAPPROG ---
JADA Progress Note Assessment/Plan: Assessment: FOOT AND LEG ARE STABLE WITH DECREASED BLOOD FLOW BUT QUITE VIABLE AND MINIMAL DISCOMFORT LONG DISCUSSION AGAIN ABOUT THE RISKS AND OPTIONS INCLUDING NON THROMBOLYSIS TO HELP DELINEATE THE ANATOMY AND POSSIBLE NEED FOR A NEW BYPASS GRAFT IN A DIFFERENT PATHWAY PATIENT IS WAITING FOR HER TO DISCUSS THESE ISSUES AND POSSIBLY TRANSFER TO HER VASCULAR SURGEON IN [place] Plan: AWAIT THE THROMBOLYSIS RESULTS/WILL REVIEW OLD CT A'S 10/01/18 10:53 10/02/18 11:25 FEELS BETTER/AFEBRILE/ EXCELLENT PEDAL PULSES/ NO RESIDUAL LEG PAIN AWAIT THE FOLLOW-UP ANGIOGRAM TO EVALUATE FOR ANATOMIC PROBLEMS/ PATIENT WANTS TO GO HOME/SHE KNOW SHE WILL NEED TO STAY ON ANTICOAGULATION/ RISKS AND OPTIONS BEEN DISCUSSED Objective: Vital Signs Temp Pulse Resp BP Pulse Ox 36.5 C 70 18 139/86 H 94 10/02/18 07:00 10/02/18 09:00 10/02/18 09:00 10/02/18 09:00 10/02/18 09:00 Laboratory Results 10/02/18 05:25 10/01/18 10/02/18 10/03/18 05:59 05:59 05:59 Intake Total 637.6 890 Output Total 1 450 Balance 636.6 440 PT 13.9 SEC (12.0-15.0) 09/30/18 16:52 INR 1.05 (0.83-1.16) 09/30/18 16:52 ICD10 Worksheet Patient Problems: Problems Problem Status Onset Arterial occlusion Acute
--- NOTE | 2018-10-02 15:34 | PDGENHP ---
History & Physical Chief Complaint: CLOTTED LEG History of Present Illness: 53-YEAR-OLD FEMALE WELL KNOWN TO ME WHO IS ADMITTED AT THIS TIME WITH A CLOTTED RIGHT ILEO FEMORAL BYPASS GRAFT WHICH WAS PLACED THE OVER 2 YEARS AGO FOR OCCLUDED TORRES MARTINEZ ILIAC ARTERY SECONDARY TO EXERCISE TRAUMA. LEG IS VIABLE NOW BUT SHE DEFINITELY FEELS DECREASED BLOOD FLOW AND LIMITATIONS. HER BYPASS IS BEEN OCCLUDED AT LEAST 4 TIMES IN OPEN WITH THROMBOLYSIS AT DIFFERENT INSTITUTIONS. HE HAS BEEN TO MULTIPLE PLACES FOR CONSULTATIONS. NO ANATOMIC ABNORMALITY CAN BE DEMONSTRATED FOR WHY THE GRAFT OCCLUDES WHEN SHE IS OFF ANTICOAGULATION. HE EVEN HAD A CT SCAN IN THE SITTING POSITION WHICH DID NOT DEMONSTRATE ANY EXTERNAL COMPRESSION ON THE BYPASS GRAFT. HYPERCOAGULABLE WORKUP WAS NEGATIVE. SHE IS QUITE FRUSTRATED WITH HER SITUATION AND IS A VERY ACTIVE PERSON. SHE IS USUALLY FOLLOWED BY A VASCULAR SURGEON IN [place] WHO PLACED A STENT IN HER BYPASS GRAFT APPROXIMATELY 8 MONTHS AGO Pertinent Past, Social, Family History: PAST HISTORY INCLUDES NO OTHER MAJOR MEDICAL PROBLEMS EXCEPT RELATED TO THIS RIGHT FEMORAL ARTERY AND ILIAC ARTERY OCCLUSION WITH SUBSEQUENT BYPASS. SHE DENIES A STRICTURE ON THE LEFT SIDE WELL OR SHE HAD A PREVIOUS THROMBECTOMY BECAUSE OF AN EMBOLIZED CLOSURE DEVICE. ALLERGIES SULFA. MEDICATIONS THE 81 MG ASPIRIN. REVIEW OF SYSTEMS IS NEGATIVE ON A FULL 10 POINT REVIEW EXCEPT RELATED TO THE HPI. SOCIAL HISTORY REVEALS SHE IS AND DOES NOT SMOKE Relevant Physical Exam: GENERAL HEALTHY 53-YEAR-OLD FEMALE IN NO ACUTE DISTRESS , AFEBRILE. HEENT NONICTERIC. CHEST CLEAR. COR REGULAR RHYTHM WITHOUT MURMURS. ABDOMEN SOFT NONTENDER WITHOUT MASSES SHE HAS RIGHT LOWER QUADRANT SURGICAL SCAR. EXTREMITIES FOR REVEAL ABSENT RIGHT FEMORAL AND PEDAL PULSES BUT HER LEG IS VIABLE WITH ADEQUATE CAPILLARY FILLING. SHE HAS FULL PEDAL PULSES ON THE LEFT. NEURO EXAM IS PHYSIOLOGIC AND SYMMETRIC. PSYCH EXAM SHE IS ALERT ORIENTED AND COOPERATIVE Cardiorespiratory Assessment: IMPRESSION: ACUTE THROMBOSIS AFTER EXERCISE OF A RIGHT ILIOFEMORAL BYPASS WHICH IS A RECURRING PROBLEM FOR WHICH NO DEFINITE ETIOLOGY HAS BEEN DETERMINED. RECOMMENDATIONS: I THINK THE PATIENT SHOULD HAVE THROMBOLYSIS AT THIS TIME TO THAT WE CAN EVALUATE THE ANATOMY OF HER BYPASS. THERE MUST BE SOME ANATOMIC PROBLEM FOR IT TO GO DOWN REPEATEDLY OVER 2 AND HALF YEARS. SHE MAY NEED SOME REVISION OR REPLACEMENT OF HER BYPASS GRAFT DESPITE THE LACK IN THE PAST OF ANY ANATOMIC ABNORMALITIES DEMONSTRATED. WE SHOULD PROBABLY CONSIDER AND EXTRA-ANATOMIC BYPASS EITHER THROUGH THE OBTURATOR FORAMEN OR A CROSSOVER GRAFT FROM THE LEFT SIDE GOING ABOVE THE INGUINAL LIGAMENT. THESE RISKS AND OPTIONS BEEN FULLY DISCUSSED WITH THE PATIENT WHO IS STILL SOMEWHAT DISHEARTENED AND UNSURE OF WHAT SHE WANTS TO DO. SHE WILL BE HEPARINIZED AT THIS POINT UNTIL OTHER DECISIONS ARE MADE
--- NOTE | 2018-10-02 16:06 | HOSPPROG ---
Hospitalist Progress Note Assessment/Plan: * Occluded stent graft RLE with limb ischemia -catheter directed lytics - on IV alteplase -back to IR today for recheck - pulses have returned -restart Eliquis at discharge * Iliofemoral bypass with 5 re-occlusions -per Dr. Peterson may need re-do surgery - suspect mechanical obstruction -she plans to pursue opinion at [place] * Left common femoral stenosis -suspect scar tissue due to previous access * Hypercoagulable state -previous hypercoag work-up negative -suspect mechanical obstruction more that blood abnormality Subjective: leg feels better Objective: Vital Signs Temp Pulse Resp BP Pulse Ox 36.9 C 54 L 17 113/72 94 10/02/18 14:00 10/02/18 14:00 10/02/18 14:00 10/02/18 14:00 10/02/18 14:00 Laboratory Results 10/02/18 05:25 10/01/18 10/02/18 10/03/18 05:59 05:59 05:59 Intake Total 637.6 890 Output Total 1 450 Balance 636.6 440 PT 13.9 SEC (12.0-15.0) 09/30/18 16:52 INR 1.05 (0.83-1.16) 09/30/18 16:52 - Physical Exam Constitutional: no apparent distress, appears nourished, not in pain Cardiovascular: regular rate and rhythym, no murmur, rub, or gallop Respiratory: no respiratory distress, no rales or rhonchi, clear to auscultation Gastrointestinal: normoactive bowel sounds, soft, non-tender abdomen, no palpable masses Skin: no rashes or abrasions, no fluctuance, no induration Neurologic: AAOx3, sensation intact bilaterally Psychiatric: interacting appropriately, not anxious, not encephalopathic, thought process linear ICD10 Worksheet Patient Problems: Problems Problem Status Onset Arterial occlusion Acute
[2018-10-02] MEDS ORDERED: NALOXONE HCL 0.4 MG/ML INJ IVP PRN (18:00)
[2018-10-02] MEDS ORDERED: NS 1,000 ML IV SCH (18:00)
[2018-10-02] MEDS ORDERED: fentaNYL 100 MCG/2 ML INJ IVP PRN (18:00)
[2018-10-02] MEDS ORDERED: FLUMAZENIL 0.5 MG/5 ML MDV IVP PRN (18:00)
[2018-10-02] MEDS ORDERED: MEPERIDINE 25 MG/ML SYR IVP PRN (18:00)
[2018-10-02] MEDS ORDERED: MIDAZOLAM 2 MG/2 ML VIAL IVP PRN (18:00)
--- NOTE | 2018-10-02 18:46 | PDRADPN ---
Radiology Procedure Note Date of Procedure: 10/02/18 Radiologist: Shaunna Leija Anesthesia: IV Sedation Pre-op Diagnosis: R EIA occlusion Post-op Diagnosis: same Procedure: Day 2 lysis Finding(s): Brisk flow through the EIA stent and graft. Tiny embolic defects in the calf vessels, which is usual for the patient after lysis. No additional intervention performed. Inf/Abcess present in the surg proc area at time of surgery?: No
[2018-10-02] MEDS ORDERED: ATROPINE SULFATE 1 MG/10 ML SYR ONE (19:34)
[2018-10-02] MEDS: APIXABAN 5 MG TAB PO SCH (23:05)
--- NOTE | 2018-10-03 02:00 | GCON ---
GRADUATE INTERN CONSULTATION. REFERRING PHYSICIAN: Pollo Vela MD REASON FOR ADMISSION: Peripheral vascular disease. The patient is a very pleasant 53-year-old white female with a past medical history of iliofemoral fi brosis and external iliac clot and occlusion with stenting and bypass in the past. She has been foll owed by [employer]. She had recently stopped her Plavix. She presented with recurrent left lower extr emity pain. She underwent a CTA, which found occlusion of the stent in the right external iliac kari ry. She was seen by Interventional Radiology, who performed an arterial thrombectomy as well as a ca theter lysis and localized tPA. In discussion with the patient, she states overall she feels markedl y improved, though she is tired of laying flat. She denies any chest pain, pleuritic-type chest pain or angina equivalent. There is no fever or night sweats. Her leg pain is mostly resolved. PAST MEDICAL HISTORY: Significant for peripheral vascular disease. She also has iliofemoral fibrosi s. PAST SURGICAL HISTORY: Stenting and an iliofemoral bypass. ALLERGIES: No known allergies to medications. SOCIAL HISTORY: No history of tobacco use. Minimal alcohol use. She is , has excellent TRAKLOK support. FAMILY HISTORY: Noncontributory. PHYSICAL EXAMINATION: VITAL SIGNS: Blood pressure 97/59, pulse 67, respirations 17, temperature 36. 5, oxygen saturation 98% on room air. GENERAL: She is a thin, well-developed 53-year-old white female who is resting comfortably in no acu te distress. HEENT: Eyes are PERRLA, EOMI. Throat shows no erythema or tonsil hypertrophy. NECK: Supple. No cervical adenopathy. HEART: Regular rate and rhythm without murmurs, rubs, or gallops. LUNGS: Clear to auscultation. No wheeze or rhonchi. ABDOMEN: Soft, nontender. Bowel sounds are present in all 4 quadrants. EXTREMITIES: No clubbing, cyanosis, or edema. LABORATORIES: White count 7.7, hemoglobin 13, hematocrit 39, platelet count is 187. Sodium 139, pot assium 4.7, chloride 106, CO2 is 23, BUN 15, creatinine 0.6, glucose is 87. IMPRESSION: 1. Peripheral vascular disease. 2. Clot of iliofemoral stent. 3. Thrombectomy with localized tPA. 4. Pain, resolved. RECOMMENDATIONS: 1. Agree with current Interventional Radiology care. 2. The patient has been seen by Surgery. 3. Deep venous thrombosis and PE prophylaxis. 4. Stress ulcer prophylaxis. 5. Anticipate discharge home soon. /[id number]/MODL
[2018-10-03 07:21] VITALS: BP 104/49
[2018-10-03] MEDS: APIXABAN 5 MG TAB PO SCH (08:25)
[2018-10-03] MEDS ORDERED: ASPIRIN EC 325 MG TAB PO SCH (09:00)
--- NOTE | 2018-10-03 18:41 | GDS ---
DISCHARGE DIAGNOSES: 1. Occluded stent in right lower extremity graft with critical limb ischemia, status post catheter d irected lytics. 2. Ileofemoral bypass with history of 5 re occlusions. 3. Left common femoral stenosis due to scar tissue. 4. Hypercoagulable state versus mechanical obstruction. HISTORY: The patient is a 53-year-old female, who has had a terrible problem with right lower extrem ity ischemia. She previously had iliofemoral bypass and has re occluded 5 times resulting in multipl e trips to the ICU for catheter directed lytics. For some reason, she stopped her Eliquis and is onl y on aspirin per day which appears to be inadequate because she re occluded her stent in the graft an d presented again with limb ischemia. She returned to intervention radiology for catheter directed l ytics, received IV Alteplase and repeat imaging shows that the stent is now again wide open. She is a greeable to restarting Eliquis. Interventional radiology is also recommending she take an aspirin wi th that. Dr. Peterson saw her in consultation. He did her initial surgery. He thinks there is probabl y a mechanical obstruction causing the failure of the bypass and is recommending a redo surgery. The patient would like to pursue a 2nd opinion and plans to be seen at [facility] to decide whether or not repeat surgery is necessary. Unfortunately due to her recurrent need for lytics, she has developed scar tissue resulting in left common femoral stenosis on the left at her a ccess site. We were able to access it without difficulty during this hospitalization. She has previ ously had a hypercoagulable workup that was negative. As discussed above the mechanical obstruction is more likely than a blood abnormality but she has not previously clotted while on Eliquis and so we are hoping that we will maintain her until further surgical consultation as an outpatient. DISCHARGE MEDICATIONS: 1. Please see computer record for full detailed list. New medications: Eliquis 10 mg p.o. twice crystal ly for 1 week then decrease to 5 mg p.o. twice daily. 2. Aspirin 325 mg p.o. daily to be increased from 81 mg p.o. daily. 3. Outpatient surgical consultation to discuss possible redo surgery. 4. Greater than 30 minutes' time was spent arranging this discharge. Patient seen and examined by me on the day of discharge. /[id number]/MODL
== END 2018-10-03 09:27 | disposition home or self-care (01) | DRG 316 ==
LOC: F2W 21:29 → F2N 10-01 16:50
PROVIDERS: ADMIT Internal Medicine; ATTEND Internal Medicine
DX: T82.868A Thrombosis due to vascular prosthetic devices, implants and grafts, initial encounter (principal); I73.9 Peripheral vascular disease, unspecified; I77.1 Stricture of artery
CPT/HCPCS: 85520-90; 96374; C1757; C1769; C1892; J0461; J1644; J2250; J2270; J2405; J2550; J2997; J3010; Q9967